=== PATIENT | male | born 1945 | race Caucasian/White ===

== ENCOUNTER 2018-06-01 08:30 | Outpatient (REF) | payer MEDICARE, OTHER, SELFPAY ==
[2018-06-01 13:46] LABS: Anion Gap 10.2 mmol/L (3-11); BUN 18 mg/dL (7-18); CO2 27.8 mmol/L (21.0-32.0); Calcium 8.9 mg/dL (8.5-10.1); Chloride 102 mmol/L (98-107); Glucose 170 mg/dL (70-100); LDL CHOLESTEROL 105 mg/dL (<100); Potassium 4.1 mmol/L (3.5-5.1); Sodium 140 mmol/L (136-145); Vitamin B12 714 pg/mL (193-986)
== END 2018-06-01 08:50 ==
LOC: NCHCN 08:30
PROVIDERS: PCP Family Medicine; Visit Provider Family Medicine
DX: E78.5 Hyperlipidemia, unspecified (principal); E11.9 Type 2 diabetes mellitus without complications; I10 Essential (primary) hypertension; D75.89 Other specified diseases of blood and blood-forming organs
CPT/HCPCS: 80048; 83721; 82607

== ENCOUNTER 2019-06-07 18:39 | Outpatient (REF) | payer MEDICARE, OTHER, SELFPAY ==
[2019-06-07 19:00] LABS: ALT 37 U/L (16-63); AST 20 U/L (15-37); Alkaline Phosphatase 45 U/L (46-116); Anion Gap 9.7 mmol/L (3-11); BUN 17 mg/dL (7-18); Bilirubin, Total 0.7 mg/dL (0.2-1.0); CO2 26.3 mmol/L (21.0-32.0); CREATININE 0.92 mg/dL (0.70-1.30); Calcium 9.1 mg/dL (8.5-10.1); Chloride 105 mmol/L (98-107); Glucose 133 mg/dL (74-106); Potassium 4.2 mmol/L (3.5-5.1); Sodium 141 mmol/L (136-145)
[2019-06-09 14:52] LABS: Hepatitis C Ab w Rflx HCV PCR Negative (Negative)
== END 2019-06-07 18:59 ==
LOC: NCHCN 18:39
PROVIDERS: PCP Family Medicine; Visit Provider Family Medicine
DX: E11.9 Type 2 diabetes mellitus without complications (principal); F10.99 Alcohol use, unspecified with unspecified alcohol-induced disorder; Z68.30 Body mass index [BMI] 30.0-30.9, adult; Z11.59 Encounter for screening for other viral diseases
CPT/HCPCS: 80053; 86803

== ENCOUNTER 2020-07-02 10:18 | Outpatient (REF) | payer MEDICARE, OTHER, SELFPAY ==
[2020-07-02 16:18] LABS: Anion Gap 11.4 mmol/L (3-11); BUN 19 mg/dL (7-18); CO2 25.6 mmol/L (21.0-32.0); CREATININE 0.9 mg/dL (0.70-1.30); Calcium 9.3 mg/dL (8.5-10.1); Chloride 104 mmol/L (98-107); Glucose 128 mg/dL (74-106); Potassium 4.5 mmol/L (3.5-5.1); Sodium 141 mmol/L (136-145)
== END 2020-07-02 10:19 | disposition home or self-care (01) ==
LOC: NCHCN 10:18
PROVIDERS: PCP Family Medicine; Visit Provider Family Medicine
DX: I10 Essential (primary) hypertension (principal)
CPT/HCPCS: 80048

== ENCOUNTER 2020-12-26 08:33 | Observation (INO) | payer MEDICARE, OTHER, SELFPAY ==
[2020-12-26] VITALS (82 sets, daily range): BP systolic 133–169; BP diastolic 48–79; PULSE 61–99; RESP 11–22; TEMP 36.2–37; O2SAT 91–98
--- NOTE | 2020-12-26 08:30 | RT.EKG_ITS ---
APPROVED REPORT Exam: Resting ECG Reason for Exam: dizzy Patient Location: E HR:90 bpm ECG Measurements Heart Rate 90 AXIS IN 152 P 63 QRSd 100 QRS 19 QT 379 T 57 QTc 464 Conclusion Sinus rhythm...normal P axis, V-rate 60- 99 sinus rhythm at 90, normal axis, no WPW, QTC 464, no STEMI, nondiagnostic EKG
[2020-12-26 10:43] LABS: Abs Immature Grans 0.06 10^3/uL (0.0-0.06); Absolute Basophil Count 0.06 10^3/uL (0.0-0.2); Absolute Eosinophil Count 0.01 10^3/uL (0.0-0.7); Absolute Lymphocyte Count 1.57 10^3/uL (1.2-3.4); Absolute Monocyte Count 0.52 10^3/uL (0.1-0.8); Basophils % 0.4; Eosinophils % 0.1; HCT 41.8 % (40.0-50.0); HGB 14.1 g/dL (13.5-17.5); Immature Grans % 0.4; Lactate 2.1 mmol/L (0.6-1.4); Lymphocytes % 11.3; MCH 32.6 pg (27.0-33.0); MCHC 33.7 % (32.0-36.0); MCV 96.5 fL (80-95); MPV 10.4 fL (8.0-11.0); Monocytes % 3.7; Neutrophils % 84.1; Nucleated RBC 0 %; Platelet Count 231 10^3/uL (130-400); RBC 4.33 10^6/uL (4.36-5.78); RDW 12.7 % (11.8-14.1); RDW-SD 46.1 fL; WBC 13.93 10^3/uL (4.4-10.8)
[2020-12-26 10:45] LABS: Absolute Neutrophil Count 11.72 10^3/uL (1.2-6.7)
--- NOTE | 2020-12-26 11:00 | DI.RAD_ITS ---
Exam(s) XR CHEST 2V PA LATERAL EXAM: XR CHEST 2V PA LATERAL CLINICAL HISTORY: lightheadedness. TECHNIQUE: 2D digital imaging was performed. COMPARISON: No exams were available for comparison FINDINGS: Heart size is normal. The mediastinum is not widened. Left lung is clear. There appears to be an element of volume loss in the right lower lobe. No pleur al effusions. No pulmonary edema. No pneumothorax. IMPRESSION: Density in the right lung base is either extension of pericardiac fat pad or significant volume loss in the right lower lobe. Similar findings are not seen in the opposite-left lung. DATA REPOSITORY: RADIATION DOSE DELIVERED:
[2020-12-26] MEDS: Normal Saline 1,000 ML 1000 ML IV ×2 (11:08→14:28)
--- NOTE | 2020-12-26 11:09 | ED.GENADUL_ITS ---
Discharge Plan Disposition Patient Disposition: [facility] INPATIENT Condition: Stable Discharge Details Clinical Impression: Unsteady gait Admit Date/Time: 12/26/20 17:28 Admit Provider: Danish Cade Attending Provider: Danish Cade Primary Care Provider: Christiano Castro ED Provider: Joe Steward Discharge Data Discharge Date/Time-TO BE ENTERED AT DEPARTURE: 12/26/20 18:42 Medical Decision Making <Asha Hatfield MD - Last Filed: 01/02/21 14:13> Terence Jules is a 75-year-old man with a history of hypertension, diabetes, hyperlipidemia presenting to emergency department with generalized weakness, difficulty walking. On exam patient is well and nontoxic-appearing. Benign cardiopulmonary exam. Nonfocal neurologic exam. Patient reporting significant lightheadedness with going from laying down to sitting up, standing neurologic exam deferred. Concern for metabolic/electrolyte derangement, possible acute emergent intracranial process, dehydration, acute coronary syndrome, pulmonary embolism, early sepsis, other. Exam/history at this time is not consistent with CVA, meningitis, subarachnoid hemorrhage, acute aortic pathology. EKG obtained and nondiagnostic. Plan for IV placement, telemetry, IV fluid hydration, CT head, screening labs. Will monitor and reassess. Plan for orthostatic vital signs after 1 L IV fluid. Patient did go to the bathroom, reported feeling shaky during the process, but did not have significant lightheadedness per nursing. Orthostatic vital signs obtained, non-diagnostic. CT head and chest x-ray negative for acute process per radiology. Labs reviewed, WBC 13.93, D-dimer 1287, lactate 2.1, anion gap 16.9, troponin negative. CT chest ordered given elevated D-dimer. CT chest negative for acute process per radiology. On reassessment, patient reports that he feels well while sitting in stretcher, no longer feels lightheaded with sitting, but has continued shakiness when standing. Patient reassessed, when standing patient persistently bears weight on heels, has difficulty maintaining feet flat on the ground, positive Romberg. Patient reports some lightheadedness with standing but does not appear to be presyncopal. Plan for MRI/MRA for rule out central process. Patient and his daughter reports that this significant change from baseline. Given severity of symptoms with standing, Pt unable to walk without feeling that he will fall, plan for admission. Medical Records Medical records reviewed: Yes I reviewed the patient's medical records. Imaging Data Radiologic Study: Attestation: I personally reviewed and interpreted this imaging study as follows: Radiologist's impression: EXAM: XR CHEST 2V PA LATERAL CLINICAL HISTORY: lightheadedness. TECHNIQUE: 2D digital imaging was performed. COMPARISON: No exams were available for comparison FINDINGS: Heart size is normal. The mediastinum is not widened. Left lung is clear. There appears to be an element of volume loss in the right lower lobe. No pleural effusions. No pulmonary edema. No pneumothorax. IMPRESSION: Density in the right lung base is either extension of pericardiac fat pad or significant volume loss in the right lower lobe. Similar findings are not seen in the opposite-left lung. EXAM: CT CHEST PE CTA CLINICAL HISTORY: near syncope, elevated d-dimer. TECHNIQUE: Imaging Protocol: CT angiography of the chest was performed using pulmonary embolus protocol. Multi planar reconstructions were performed. CONTRAST MATERIAL: Intravenous: Omnipaque 350 Contrast volume: 100 cc COMPARISON: No exams were available for comparison FINDINGS: CHEST: PULMONARY ARTERIES: There are no obvious intraluminal filling defects to suggest acute pulmonary emboli. LUNGS: Mild increased markings both lung bases but no prominent infiltrates nor pleural effusions.. No obvious pulmonary infarction. MEDIASTINUM: There is no hilar nor mediastinal adenopathy. Visualized thyroid unremarkable. CARDIAC: Heart size is upper normal. There is no pericardial effusion.Caliber of the thoracic aorta is within normal limits. There is no significant shift of the interventricular septum. PARTIALLY VISUALIZED UPPERMOST ABDOMEN: No adrenal masses. There is a 1.5 cm cyst in the partially visualized right kidney. OSSEOUS: No significant osseous lesions.. IMPRESSION: 1. No evidence of obvious acute pulmonary emboli. No evidence of pulmonary infarction.No pleural effusions. 2. No intrathoracic adenopathy. 3. Heart size normal. Pericardial effusion. (*clarified with radiology Impression is to say NO pericardial effusion, Dragon dictation error) EXAM: CT HEAD WO CLINICAL HISTORY: lightheadedness, memory issues. TECHNIQUE: Imaging Protocol: Axial computed tomography images with coronal and sagittal reformatted images were created and reviewed COMPARISON: CR XR CHEST 2V PA LATERAL from 12/26/2020 FINDINGS: There are no skull fractures. Mucosal thickening in both maxillary sinuses noted, not associated with fluid levels therein. Also some mucosal thickening in the frontal sinuses. There is no evidence of intracranial hemorrhage, mass effect, or shift of midline structures. There are no extra-axial fluid collections. The ventricles are not enlarged or shifted and there is no blood within the ventricular system nor within the basal cisterns. Symmetrical involutional change atrophy noted IMPRESSION: No acute intracranial findings on this noninfused CT scan of the brain. Sinus mucosal disease as described above. No associated fluid levels. No bone dehiscence. Lab Data Lab results reviewed: Yes I reviewed the patient's lab results. Labs: Laboratory Tests Range/Units 12/26/20 12/26/20 12/26/20 10:35 10:35 10:35 WBC (4.4-10.8) 10^3/uL 13.93 H RBC (4.36-5.78) 10^6/uL 4.33 L Hgb (13.5-17.5) g/dL 14.1 Hct (40.0-50.0) % 41.8 MCV (80-95) fL 96.5 H MCH (27.0-33.0) pg 32.6 MCHC (32.0-36.0) % 33.7 RDW (11.8-14.1) % 12.7 Plt Count (130-400) 10^3/uL 231 MPV (8.0-11.0) fL 10.4 Immature Gran % 0.4 Neutrophils % 84.1 Lymphocytes % 11.3 Monocytes % 3.7 Eosinophils % 0.1 Basophils % 0.4 Nucleated RBC % % 0 Absolute Neutrophils (1.2-6.7) 10^3/uL 11.72 H Absolute Lymphocytes (1.2-3.4) 10^3/uL 1.57 Absolute Monocytes (0.1-0.8) 10^3/uL 0.52 Absolute Eosinophils (0.0-0.7) 10^3/uL 0.01 Absolute Basophils (0.0-0.2) 10^3/uL 0.06 D-Dimer (<500) ng/mlFEU VBG Lactate (0.6-1.4) mmol/L Sodium Cancelled 142 Potassium Cancelled 4.5 Chloride Cancelled 102 Carbon Dioxide Cancelled 23.1 Anion Gap Cancelled 16.9 H BUN Cancelled 20 H Creatinine Cancelled 1.3 Estimated GFR/1.73 m2 Cancelled 53.82 Glucose Cancelled 111 H Calcium Cancelled 9.3 Magnesium (1.8-2.4) mg/dL 2.1 Total Bilirubin Cancelled 0.7 AST Cancelled 30 ALT Cancelled 32 Alkaline Phosphatase Cancelled 68 Troponin I (<0.06) ng/mL < 0.05 Total Protein Cancelled 7.9 Albumin Cancelled 4.4 TSH (0.36-3.74) uIU/mL 0.74 Urine Color (Yellow) Urine Clarity (Clear) Urine pH (5-8) Ur Specific [place] (1.005-1.025) Urine Protein (Negative) mg/dL Urine Ketones (Negative) mg/dL Urine Blood (Negative) Urine Nitrite (Negative) Urine Bilirubin (Negative) Urine Urobilinogen (Up TO 0.2) EU/dL Ur Leukocyte Esterase (Negative) Urine RBC (0-2) HPF Urine WBC (0-5) HPF Ur Epithelial Cells (Negative) HPF Urine Crystals (Negative) HPF Urine Bacteria (Negative) HPF Urine Casts (Negative) LPF Urine Mucus (Negative) Ur Culture Indicated? Urine Glucose (Negative) mg/dL COVID-19 Source Range/Units 12/26/20 12/26/20 12/26/20 10:35 10:55 11:05 WBC (4.4-10.8) 10^3/uL RBC (4.36-5.78) 10^6/uL Hgb (13.5-17.5) g/dL Hct (40.0-50.0) % MCV (80-95) fL MCH (27.0-33.0) pg MCHC (32.0-36.0) % RDW (11.8-14.1) % Plt Count (130-400) 10^3/uL MPV (8.0-11.0) fL Immature Gran % Neutrophils % Lymphocytes % Monocytes % Eosinophils % Basophils % Nucleated RBC % % Absolute Neutrophils (1.2-6.7) 10^3/uL Absolute Lymphocytes (1.2-3.4) 10^3/uL Absolute Monocytes (0.1-0.8) 10^3/uL Absolute Eosinophils (0.0-0.7) 10^3/uL Absolute Basophils (0.0-0.2) 10^3/uL D-Dimer (<500) ng/mlFEU 1287 H VBG Lactate (0.6-1.4) mmol/L 2.1 H Sodium Potassium Chloride Carbon Dioxide Anion Gap BUN Creatinine Estimated GFR/1.73 m2 Glucose Calcium Magnesium (1.8-2.4) mg/dL Total Bilirubin AST ALT Alkaline Phosphatase Troponin I (<0.06) ng/mL Total Protein Albumin TSH (0.36-3.74) uIU/mL Urine Color (Yellow) Yellow Urine Clarity (Clear) Clear Urine pH (5-8) 5.5 Ur Specific [place] (1.005-1.025) >= 1.030 H Urine Protein (Negative) mg/dL Negative Urine Ketones (Negative) mg/dL 80 H Urine Blood (Negative) Trace-lysed H Urine Nitrite (Negative) Negative Urine Bilirubin (Negative) Negative Urine Urobilinogen (Up TO 0.2) EU/dL 0.2 Ur Leukocyte Esterase (Negative) Negative Urine RBC (0-2) HPF 0-2 Urine WBC (0-5) HPF 0-2 Ur Epithelial Cells (Negative) HPF Rare Urine Crystals (Negative) HPF Negative Urine Bacteria (Negative) HPF Few Urine Casts (Negative) LPF Comment Urine Mucus (Negative) Moderate Ur Culture Indicated? No Urine Glucose (Negative) mg/dL Negative COVID-19 Source Range/Units 12/26/20 11:12 WBC (4.4-10.8) 10^3/uL RBC (4.36-5.78) 10^6/uL Hgb (13.5-17.5) g/dL Hct (40.0-50.0) % MCV (80-95) fL MCH (27.0-33.0) pg MCHC (32.0-36.0) % RDW (11.8-14.1) % Plt Count (130-400) 10^3/uL MPV (8.0-11.0) fL Immature Gran % Neutrophils % Lymphocytes % Monocytes % Eosinophils % Basophils % Nucleated RBC % % Absolute Neutrophils (1.2-6.7) 10^3/uL Absolute Lymphocytes (1.2-3.4) 10^3/uL Absolute Monocytes (0.1-0.8) 10^3/uL Absolute Eosinophils (0.0-0.7) 10^3/uL Absolute Basophils (0.0-0.2) 10^3/uL D-Dimer (<500) ng/mlFEU VBG Lactate (0.6-1.4) mmol/L Sodium Potassium Chloride Carbon Dioxide Anion Gap BUN Creatinine Estimated GFR/1.73 m2 Glucose Calcium Magnesium (1.8-2.4) mg/dL Total Bilirubin AST ALT Alkaline Phosphatase Troponin I (<0.06) ng/mL Total Protein Albumin TSH (0.36-3.74) uIU/mL Urine Color (Yellow) Urine Clarity (Clear) Urine pH (5-8) Ur Specific [place] (1.005-1.025) Urine Protein (Negative) mg/dL Urine Ketones (Negative) mg/dL Urine Blood (Negative) Urine Nitrite (Negative) Urine Bilirubin (Negative) Urine Urobilinogen (Up TO 0.2) EU/dL Ur Leukocyte Esterase (Negative) Urine RBC (0-2) HPF Urine WBC (0-5) HPF Ur Epithelial Cells (Negative) HPF Urine Crystals (Negative) HPF Urine Bacteria (Negative) HPF Urine Casts (Negative) LPF Urine Mucus (Negative) Ur Culture Indicated? Urine Glucose (Negative) mg/dL COVID-19 Source Nasal/Nares ECG Data Attestation: I personally reviewed and interpreted this ECG (s) as follows: Interpretation: EKG shows sinus rhythm at 90, normal axis, no WPW, QTC 464, no STEMI, nondiagnostic EKG <Joe Steward MD - Last Filed: 12/26/20 17:31> mri/mra unremarkable for acute findings and remains stable, spoke withDr. Cade who accepts for admission HPI <Asha Hatfield MD - Last Filed: 01/02/21 14:13> General Date/Time Provider Initiated Documentation: 12/26/20 09:14 . Limitations to Documentation: no limitations . Information obtained by: patient, family, RN notes reviewed and old records reviewed . HPI Narrative: Terence Jules is a 75-year-old man with history of hyperlipidemia, hypertension, [id number] diabetes presenting to emergency department with lightheadedness. Patient reports that he woke up this morning, got out of bed, and walk to the bathroom. Patient reports that on the way to the bathroom he felt shaky, both of his legs felt weak, and he felt as if he might faint. Patient was able to go to the bathroom where he urinated, and then went back to his bed and lie down. Patient reports that his symptoms improved significantly upon lying down. Patient reports that he lie down for a while, and then got out of bed to have breakfast, and upon standing again felt quite lightheaded. He was able to walk to a chair in his living room. Patient called his daughter at approximately 7 AM and let her know of his symptoms. Patient's daughter accompanies the patient, and reports that patient feeling unwell or calling her because he feels unwell is very atypical for him. Patient and his daughter report that over the past few months, and particularly in the past month or so, they have noticed that he has had difficulty with word finding and memory, and patient's daughter reports that last week he did not remember a member of their extended family in conversation. Patient reports that he has not been evaluated for this in the past. Patient's left for [place] approximately 3 weeks ago, and is due to return next week. Patient since then what he has been eating has changed, and is eating may have decreased somewhat. He denies any alcohol use, any nicotine or tobacco use. He denies any pain, shortness of breath, cough (contrary to triage note), vomiting, diarrhea, constipation, localized weakness. Patient reports that at no point this morning if you faint, and he did not fall. He denies any vertigo or spinning sensation since onset of symptoms. Related Data Home Medications Medication Instructions Recorded Confirmed blood sugar diagnostic [OneTouch #90 strip 06/25/12 11/17/16 Ultra Test] lancets [FunifiTouch Delica Lancets] #100 ea 06/25/12 11/17/16 multivitamin 1 tab PO DAILY 06/25/12 12/26/20 naproxen sodium 1 tab PO DAILY 12/19/13 12/26/20 amlodipine [Norvasc] 1 tab PO QAM #90 tab 06/19/14 12/26/20 atorvastatin [Lipitor] 1 tab PO QAM #90 tab-cap 06/19/14 12/26/20 losartan [Cozaar] 1 tab PO QAM #90 tab 06/19/14 12/26/20 metformin 500 mg PO BID #90 tab-cap 06/19/14 12/26/20 metoprolol succinate [Toprol XL] 1 tab PO HS #90 tab-cap 06/19/14 12/26/20 Allergies Allergy/AdvReac Type Severity Reaction Status Date / Time No Known Allergies Allergy Unverified 12/26/20 09:13 General Stated Complaint: Dizzy/Sync CHESTER: 3 Review of Systems <Asha Hatfield MD - Last Filed: 01/02/21 14:13> Narrative: Constitutional: denies fevers, reports generalized weakness Eyes: denies eye pain ENT: denies ear pain, dental pain, sore throat Cardiovascular: denies chest pain, edema, reports lightheadedness Respiratory: denies SOB, cough GI: denies abdominal pain, vomiting, diarrhea : denies flank pain MSK: denies back pain, neck pain, arthralgias, myalgias Skin: denies rash Neuro: denies headaches, numbness, focal weakness, reports shakiness in legs and arms PFSH <Asha Hatfield MD - Last Filed: 01/02/21 14:13> Active Problem List Atherosclerotic cerebrovascular disease (Acute) Lightheadedness (Acute) Unsteady gait (Acute) Surgical History Colonoscopy - IV Sedation (06/09/16) Colonoscopy - MAC 10/23 hernia repair right herniorrhaphy x2 Family History Mother Essential hypertension Heart disease Stroke Father Diabetes Personal history of malignant neoplasm PROSTATE Heart disease Hyperlipidemia Stroke Sister No problems noted. Grandmother Essential hypertension Heart disease Grandfather Personal history of malignant neoplasm Grandfather Personal history of malignant neoplasm PROSTATE/SKIN Grandmother Stroke Social History Smoking/Tobacco Use Status: Former Tobacco Use Smoking risk assessment performed?: Yes Alcohol Intake: current Alcohol Intake frequency: a few times a month Drug use: Never Do you feel safe at home: Yes Do you feel safe in your relationship?: Yes Exam <Asha Hatfield MD - Last Filed: 01/02/21 14:13> Narrative Exam Narrative: constitutional: well and [id number], pleasant, conversing normally HENT: head atraumatic/normocephalic/normal inspection, mucous membranes moist Eyes: conjunctiva normal, sclera normal, pupils 3mm b/l ERRLA, EOMI without nystagmus Neck: no stridor, normal ROM, trachea midline, 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 ient, nontender, no overlying skin changes Chest: normal inspection Resp: normal work of breathing, LCTAB Cardio: normal rate, normal rhythm, no murmur appreciated GI: abdomen soft, non-tender, non-distended Back: normal inspection, no rash Skin: warm, dry, normal color, no rash Neuro: alert and oriented x3, not altered, cranial nerves II through XII intact, motor 5 out of 5 throughout, normal tone Ext: no edema, no posterior calf tenderness to palpation Psych: normal mood, normal affect, normal behavior Course <Asha Hatfield MD - Last Filed: 01/02/21 14:13> Vital Signs Vital signs: Vital Signs Pulse Oximetry 98 12/26/20 08:44 Temperature 36.2 C L 12/26/20 09:04 Temperature Source Skin 12/26/20 09:04 Pulse 90 12/26/20 09:31 Pulse 89 12/26/20 09:40 Respiratory Rate 22 12/26/20 09:40 Respiratory Effort 12/26/20 09:11 Respiratory Depth Normal 12/26/20 09:08 Respiratory Pattern Normal 12/26/20 09:08 Blood Pressure 141/54 H 12/26/20 09:31 Blood Pressure Mean 75 12/26/20 09:31 Pulse Oximetry 91 L 12/26/20 09:40 Oxygen Delivery Method Room Air 12/26/20 09:11 Oxygen Flow Rate 0 12/26/20 09:11 Pain Level 10 12/26/20 09:11 Comment uses salon pas patch 12/26/20 09:04 Lab/Test Results Lab/Test Results: Laboratory Tests Range/Units 12/26/20 12/26/20 12/26/20 10:35 10:35 10:35 WBC (4.4-10.8) 10^3/uL 13.93 H RBC (4.36-5.78) 10^6/uL 4.33 L Hgb (13.5-17.5) g/dL 14.1 Hct (40.0-50.0) % 41.8 MCV (80-95) fL 96.5 H MCH (27.0-33.0) pg 32.6 MCHC (32.0-36.0) % 33.7 RDW (11.8-14.1) % 12.7 Plt Count (130-400) 10^3/uL 231 MPV (8.0-11.0) fL 10.4 Immature Gran % 0.4 Neutrophils % 84.1 Lymphocytes % 11.3 Monocytes % 3.7 Eosinophils % 0.1 Basophils % 0.4 Nucleated RBC % % 0 Absolute Neutrophils (1.2-6.7) 10^3/uL 11.72 H Absolute Lymphocytes (1.2-3.4) 10^3/uL 1.57 Absolute Monocytes (0.1-0.8) 10^3/uL 0.52 Absolute Eosinophils (0.0-0.7) 10^3/uL 0.01 Absolute Basophils (0.0-0.2) 10^3/uL 0.06 VBG Lactate (0.6-1.4) mmol/L 2.1 H Sodium Cancelled Potassium Cancelled Chloride Cancelled Carbon Dioxide Cancelled Anion Gap Cancelled BUN Cancelled Creatinine Cancelled Estimated GFR/1.73 m2 Cancelled Glucose Cancelled Calcium Cancelled Total Bilirubin Cancelled AST Cancelled ALT Cancelled Alkaline Phosphatase Cancelled Total Protein Cancelled Albumin Cancelled Sign Out <Asha Hatfield MD - Last Filed: 01/02/21 14:13> Sign Out Data: Sign Out Comment: Patient signed out to Dr. Steward at time of shift change with admission pending for unsteady gait, leukocytosis, lactic acidosis. Last updated by Asha Hatfield MD at 12/26/20 17:04 PAWSS <Asha Hatfield MD - Last Filed: 01/02/21 14:13> Have you Been Recently Intoxicated or Drunk Within the Last 30 days?: No Have you Ever Experienced Previous Episodes of Alcohol Withdrawal?: No Have you ever Experienced Withdrawal Seizures?: No Have you ever Experienced Delirium Tremens(DT)s?: No Have you ever undergone Alcohol Rehabilitation Treatment (i.e, inpt ot outpatient treatment programs)?: No Have you ever Experienced Blackouts?: No Have you ever Combined Alcohol with other Downers within the last 90 days?: No Have you ever Combined Alcohol with any other Substance of Abuse during the last 90 days?: No Positive Blood Alcohol level on Presentation? [PCS.BAL]: No Evidence of Increased Autonomic Activity (i.e. HR>120, tremor, sweating, agitation, nausea)?: No Result: 0
[2020-12-26 11:13] LABS: ALT 32 U/L (16-63); AST 30 U/L (15-37); Albumin 4.4 g/dL (3.4-5.0); Alkaline Phosphatase 68 U/L (46-116); Anion Gap 16.9 mmol/L (3-11); BUN 20 mg/dL (7-18); Bilirubin, Total 0.7 mg/dL (0.2-1.0); CO2 23.1 mmol/L (21.0-32.0); CREATININE 1.3 mg/dL (0.70-1.30); Calcium 9.3 mg/dL (8.5-10.1); Chloride 102 mmol/L (98-107); Estimated GFR 53.82 (mL/min/1.73m2); Glucose 111 mg/dL (74-106); Potassium 4.5 mmol/L (3.5-5.1); Sodium 142 mmol/L (136-145); Total Protein 7.9 g/dL (6.4-8.2)
[2020-12-26 11:14] LABS: Magnesium 2.1 mg/dL (1.8-2.4); TSH (W/Ref FT4) 0.74 uIU/mL (0.36-3.74); Troponin I < 0.05 ng/mL (<0.06)
[2020-12-26 11:15] LABS: Source Nasal/Nares
[2020-12-26 11:22] LABS: Clarity Clear (Clear)
[2020-12-26 11:23] LABS: Bilirubin Negative (Negative); Blood Trace-lysed (Negative); Epithelial Cells Rare HPF (Negative); Glucose Negative (Negative); Ketones 80 mg/dL (Negative); Leukocyte Esterase Negative (Negative); Nitrite Negative (Negative); RBC 0-2 HPF (0-2); Specific Gravity >= 1.030 (1.005-1.025); Urobilinogen 0.2 EU/dL (Up TO 0.2); WBC 0-2 HPF (0-5); pH 5.5 (5-8)
[2020-12-26 11:24] LABS: Bacteria Few HPF (Negative); C & S Indicated? No; Crystals Negative HPF (Negative); Mucus Moderate (Negative)
--- NOTE | 2020-12-26 11:45 | DI.CT_ITS ---
Exam(s) CT CHEST PE CTA EXAM: CT CHEST PE CTA CLINICAL HISTORY: near syncope, elevated d-dimer. TECHNIQUE: Imaging Protocol: CT angiography of the chest was performed using pulmonary embolus carmen col. Multi planar reconstructions were performed. CONTRAST MATERIAL: Intravenous: Omnipaque 350 Contrast volume: 100 cc COMPARISON: No exams were available for comparison FINDINGS: CHEST: PULMONARY ARTERIES: There are no obvious intraluminal filling defects to suggest acute pulmonary embo li. LUNGS: Mild increased markings both lung bases but no prominent infiltrates nor pleural effusions.. No obvious pulmonary infarction. MEDIASTINUM: There is no hilar nor mediastinal adenopathy. Visualized thyroid unremarkable. CARDIAC: Heart size is upper normal. There is no pericardial effusion.Caliber of the thoracic aorta is within normal limits. There is no significant shift of the interventricular septum. PARTIALLY VISUALIZED UPPERMOST ABDOMEN: No adrenal masses. There is a 1.5 cm cyst in the partially v isualized right kidney. OSSEOUS: No significant osseous lesions.. IMPRESSION: 1. No evidence of obvious acute pulmonary emboli. No evidence of pulmonary infarction.No pleural eff usions. 2. No intrathoracic adenopathy. 3. Heart size normal. Pericardial effusion. RADIATION DOSE DELIVERED: 463.18mGy.cm Total DLP DATA REPOSITORY: All CT scans at this facility are submitted to the National Radiology Data Registry (NRDR) Dose Index Registry (DIR) with the [employer] ([employer]). RADIATION OPTIMIZATION: All CT scans at this facility use at least one of these dose optimization te chniques: automated exposure control; mA and/or kV adjustment per patient size (includes targeted exa ms where dose is matched to clinical indication); or iterative reconstruction.
[2020-12-26 11:46] LABS: D-Dimer 1287 ng/mlFEU (<500)
--- NOTE | 2020-12-26 12:00 | DI.CT_ITS ---
Exam(s) CT HEAD WO EXAM: CT HEAD WO CLINICAL HISTORY: lightheadedness, memory issues. TECHNIQUE: Imaging Protocol: Axial computed tomography images with coronal and sagittal reformatted images were created and reviewed COMPARISON: CR XR CHEST 2V PA LATERAL from 12/26/2020 FINDINGS: There are no skull fractures. Mucosal thickening in both maxillary sinuses noted, not associated wi th fluid levels therein. Also some mucosal thickening in the frontal sinuses. There is no evidence of intracranial hemorrhage, mass effect, or shift of midline structures. There are no extra-axial fluid collections. The ventricles are not enlarged or shifted and there is no blo od within the ventricular system nor within the basal cisterns. Symmetrical involutional change atrophy noted IMPRESSION: No acute intracranial findings on this noninfused CT scan of the brain. Sinus mucosal disease as described above. No associated fluid levels. No bone dehiscence. RADIATION DOSE DELIVERED: 818.98mGy.cm Total DLP DATA REPOSITORY: All CT scans at this facility are submitted to the National Radiology Data Registry (NRDR) Dose Index Registry (DIR) with the [employer] ([employer]). RADIATION OPTIMIZATION: All CT scans at this facility use at least one of these dose optimization te chniques: automated exposure control; mA and/or kV adjustment per patient size (includes targeted exa ms where dose is matched to clinical indication); or iterative reconstruction.
[2020-12-26] MEDS: Omnipaque 350 MG/ML 100 ML BTL IJ (13:17)
[2020-12-26] MEDS: Normal Saline - Diluent 50 ML VIAL IV (13:18)
[2020-12-26] MEDS: Normal Saline Flush 10 ML SYR IVP (13:19)
--- NOTE | 2020-12-26 16:00 | DI.MRI_ITS ---
Exam(s) MR ANGIO BRAIN WO CLINICAL HISTORY: loss of balance. TECHNIQUE: Multiplanar multisequence MRA of the brain was performed. COMPARISON: None. FINDINGS: Carotid Arteries: Petrous: Normal. Cavernous: Normal. Cerebral: Normal. Middle Cerebral Arteries: Right: No aneurysm or significant stenosis. Left: No aneurysm or significant stenosis. Anterior Cerebral Arteries: Right: No aneurysm or significant stenosis. Left: No aneurysm or significant stenosis. Vertebral Arteries: Right: No aneurysm or significant stenosis. Left: No aneurysm or significant stenosis. . Basilar Artery: No aneurysm or significant stenosis. IMPRESSION: No evidence of significant stenosis, occlusion or dissection. No aneurysm. DATA REPOSITORY:
--- NOTE | 2020-12-26 16:10 | DI.MRI_ITS ---
Exam(s) MR ANGIO NECK WO EXAM: MR ANGIO NECK WO CLINICAL HISTORY: loss of balance. TECHNIQUE: Multiplanar multisequence MRA of the Neck was performed. COMPARISON: No exams were available for comparison FINDINGS: Common Carotid: Right: No dissection, occlusion or significant stenosis. Left: No dissection, occlusion or significant stenosis. Internal Carotid: Right: Tortuosity proximally. Segment of apparent narrowing proximally versus in plain artifact. No dissection, . Left: No dissection, mild proximal narrowing.. Vertebral Artery: Right: No dissection, occlusion or significant stenosis. Left: No dissection, occlusion or significant stenosis. IMPRESSION: Right: Tortuous proximal right internal carotid artery. Apparent approximate 60 percent narrowing pr oximally versus artifact. Left: Mild stenosis proximal left internal carotid artery. Less than 50 percent stenosis. DATA REPOSITORY:
--- NOTE | 2020-12-26 16:45 | DI.VRAD_ITS ---
PROCEDURE INFORMATION: Exam: MRA Neck Without Contrast Exam date and time: 12/26/2020 4:08 PM Age: 75 years old Clinical indication: Other: Balance issues TECHNIQUE: Imaging protocol: Magnetic resonance angiography of the neck without contrast. COMPARISON: No relevant prior studies available. FINDINGS: Right common carotid artery: No stenosis. No dissection or occlusion. Right internal carotid artery: Irregular long segment narrowing of the right internal carotid artery from the origin through the mid cervical vessel is estimated at 60% by NASCET criteria. Right external carotid artery: No stenosis. No dissection or occlusion of the origin. Right vertebral artery: Irregular moderate narrowing of the right vertebral V3 segment. Left common carotid artery: No stenosis. No dissection or occlusion. Left internal carotid artery: Irregular narrowing at the left internal carotid artery origin is estimated at less than 50% by NASCET criteria. Left external carotid artery: No stenosis. No dissection or occlusion of the origin. Left vertebral artery: Somewhat hypoplastic left vertebral artery, with mild irregular distal vessel narrowing. IMPRESSION: 1. Moderate stenosis at the proximal right internal carotid artery is estimated at 60% by NASCET criteria. 2. Mild stenosis at the left internal carotid artery origin is estimated at less than 50% by NASCET criteria. 3. Irregular narrowing of the distal right greater than left vertebral arteries likely secondary to atherosclerosis. REFERENCES: NASCET CRITERIA. The degree of internal carotid artery stenosis is based on NASCET criteria. Normal is no stenosis. Mild is less than 50% stenosis. Moderate is 50-69% stenosis. Severe is 70% to 99% stenosis. Total occlusion is no detectable patent lumen. Dictated and Authenticated by: Guilherme Burgos MD. Ordering:FRANCISCO Barry MD
--- NOTE | 2020-12-26 16:45 | DI.MRI_ITS ---
Exam(s) MR BRAIN WO EXAM: MR BRAIN WO CLINICAL HISTORY: acute loss of balance. TECHNIQUE: Multiplanar multisequence MRI of the brain was performed. CONTRAST MATERIAL: Noncontrast COMPARISON: MR MR ANGIO BRAIN WO from 12/26/2020 FINDINGS: VENTRICLES AND EXTRA AXIAL SPACES: Nmvw-yu-noomithr atrophy. Ventricles not dilated. HEMORRHAGE: None. CEREBRAL PARENCHYMA: No focus of restricted diffusion to suggest acute infarct. No space-occupying le rosanna identified. Mild small-vessel white matter changes. MIDLINE SHIFT: None. BRAINSTEM/CEREBELLUM: Normal. VISUALIZED PARANASAL SINUSES/MASTOIDS: Mild maxillary sinus mucosal thickening. OTHER FINDINGS: Roughly 2.5 centimeter fatty asymmetry in the left posterior neck seen on the sagitta l T2 sequence, consistent with a lipoma. IMPRESSION: Atrophy and white matter changes of small vessel disease. No evidence of an acute infarct. DATA REPOSITORY:
--- NOTE | 2020-12-26 16:49 | DI.VRAD_ITS ---
PROCEDURE INFORMATION: Exam: MRA Head Without Contrast; Arteriography Exam date and time: 12/26/2020 4:27 PM Age: 75 years old Clinical indication: Other: Balance issues TECHNIQUE: Imaging protocol: Magnetic resonance angiography head without contrast. Exam focused on the arteries. COMPARISON: CT HEAD WO 12/26/2020 11:49 AM FINDINGS: ANTERIOR CIRCULATION: Right internal carotid artery: Intracranial segment is patent with no significant stenosis. No aneurysm. Right middle cerebral artery: No occlusion or significant stenosis. No aneurysm. Right anterior cerebral artery: No occlusion or significant stenosis. No aneurysm. Left internal carotid artery: Intracranial segment is patent with no significant stenosis. No aneurysm. Left middle cerebral artery: No occlusion or significant stenosis. No aneurysm. Left anterior cerebral artery: Mild irregular narrowing of the distal left V4 segment. No evidence of aneurysm formation. POSTERIOR CIRCULATION: Right vertebral artery: No occlusion or significant stenosis. No aneurysm. Left vertebral artery: No occlusion or significant stenosis. No aneurysm. Basilar artery: Mild irregular narrowing of the basilar artery. No evidence of aneurysm formation. Right posterior cerebral artery: No occlusion or significant stenosis. No aneurysm. Left posterior cerebral artery: Persistent origin of the left posterior cerebral artery, with diminutive left P1 segment. No evidence of significant stenosis or aneurysm formation. IMPRESSION: Mild intracranial arteriosclerosis, without high-grade stenosis or evidence of anterior large vessel occlusion. Dictated and Authenticated by: Guilherme Burgos MD. Ordering:FRANCISCO Barry MD
--- NOTE | 2020-12-26 16:58 | DI.VRAD_ITS ---
PROCEDURE INFORMATION: Exam: MR Head Without Contrast Exam date and time: 12/26/2020 4:25 PM Age: 75 years old Clinical indication: Other: Confusion, balance issues. TECHNIQUE: Imaging protocol: MR of the head without contrast. COMPARISON: CT HEAD WO 12/26/2020 11:49 AM FINDINGS: Brain: Cerebral and cerebellar volume is within normal limits for the patient's age. Mild chronic small vessel ischemic changes. No evidence of acute infarction. No acute intracranial hemorrhage, midline shift, or mass effect. Cerebral ventricles: Normal. No ventriculomegaly. Pituitary gland and sella: No gross mass. Bones/joints: Degenerative changes of the cervical spine with likely significant spinal canal stenosis, incompletely evaluated. Paranasal sinuses: Normal as visualized. No acute sinusitis. Mastoid air cells: Normal as visualized. No mastoid effusion. Orbital cavity: Status post bilateral lens replacement surgery. 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 No evidence of acute infarction. 2. Mild chronic small vessel ischemic changes. Dictated and Authenticated by: Guilherme Burgos MD. Ordering:FRANCISCO Barry MD
[2020-12-26 18:03] LABS: Lactate 1.1 mmol/L (0.6-1.4)
[2020-12-26] MEDS: Aspirin 81 MG CHEW 324 MG CH (18:17)
[2020-12-26 18:21] LABS: Anion Gap 12.4 mmol/L (3-11); BUN 15 mg/dL (7-18); CO2 23.6 mmol/L (21.0-32.0); Calcium 8.3 mg/dL (8.5-10.1); Chloride 105 mmol/L (98-107); Glucose 79 mg/dL (74-106); Sodium 141 mmol/L (136-145)
[2020-12-26 18:40] LABS: Troponin I < 0.05 ng/mL (<0.06)
[2020-12-26 19:28] LABS: COVID-19 PCR Negative (Negative)
[2020-12-26] MEDS: Enoxaparin 40 MG/0.4 ML SYR SC (20:31)
--- NOTE | 2020-12-26 20:34 | W.PM.HP.N ---
Date of service: 12/26/20 Time of Service: 20:34 Assessment and Plan Assessment and plan (1) Unsteady gait: Status: Acute Assessment and plan: Unclear etiology. Reportedly had a positive Romberg sign in the emergency department. I did not ambulate the patient in his room but he seemed to have normal strength and range of motion of both upper and lower extremities with no visible tremors. I will ask physical therapy to evaluate his gait and strength in the morning. We will ask neurology to consult on his cerebrovascular disease and is documented in his MRI and MRA of the brain and MRA of his cervical vessels. Patient will be start on aspirin daily. I have put parameters on which to hold his antihypertensive medications if his systolic blood pressures below 130. He describes a shakiness in his arms and legs when the try getting out of bed this morning and it may be that he has had some poor oral intake and may have been mildly dehydrated and may have been orthostatic. There is also been some concern raised by family that he has had some mild cognitive impairment with some recent memory loss. (2) Lightheadedness: Status: Acute Assessment and plan: As above (3) HTN (hypertension): Status: None Assessment and plan: Continue home medications with parameters to hold his blood pressure for low blood pressure readings. Will monitor orthostatic vitals. Qualifiers: Hypertension type: primary hypertension Qualified Code(s): I10 - Essential (primary) hypertension (4) DM (diabetes mellitus): Status: None Assessment and plan: We will hold his Metformin for now in light of his recent CT and MRI exam. Continue to monitor blood sugars before meals and at bedtime and cover with low-dose sliding scale NovoLog. Check glycohemoglobin A1c in the morning. Qualifiers: Diabetes mellitus type: type 2 Diabetes mellitus shelter insulin use: without shelter use Diabetes mellitus complication status: without complication Qualified Code(s): E11.9 - Type 2 diabetes mellitus without complications (5) Atherosclerotic cerebrovascular disease: Status: Acute Assessment and plan: CT of the head without contrast reportedly showed no acute findings and his MRI of the brain showed mild chronic small vessel changes with no acute infarction. However MRI of the brain showed some mild intracranial arterial sclerosis with mild irregular narrowing of his basilar artery is MRA of the cervical vessels showed moderate stenosis of his proximal right internal carotid artery with 60% narrowing and mild stenosis of his left internal carotid artery along with some irregular narrowing of the distal right and left vertebral arteries. Patient will be started on aspirin 81 mg daily. He was front loaded with aspirin 324 mg orally in the emergency department. I will check his glycohemoglobin A1c and lipid profile in the morning. Otherwise continue his current dose of atorvastatin. Continue current blood pressure medications with close monitoring and orthostatic vitals. History of Present Illness History of Present Illness Chief Complaint: Shakiness, lightheadedness, weakness Narrative: 75-year-old male non-smoker with history of type 2 diabetes mellitus on Metformin, essential hypertension (on Norvasc, losartan, Toprol-XL), hyperlipidemia treated with atorvastatin, who usually lives with his but his has been out of town in [place] for the last 3 weeks. Patient had awoken this morning around 5:55 AM and got up to the bathroom felt very weak shaky felt like he was going to pass out but did not lose consciousness and did not fall. He voided and walked back to the bedroom to lie down. After laying down he felt better. He had no vertigo symptoms although he did have some nausea but no vomiting. He denied a headache or blurred vision or vision loss and denied any focal paresthesias or paraparesis. He tried to get out of bed to get some breakfast around 630 or 7 AM and again felt very lightheaded but was able to walk to the chair in the living room and sat down and called his daughter. This is around 7 AM. He was brought to the emergency department at 8:45 AM accompanied by his daughter. His daughter gave additional information to the ER personnel that the patient's been having difficulty with his memory with frequent word finding difficulty and difficulty recalling names of extended family members. She also noted these not been eating right since her mother went to [place]. In the emergency department the patient underwent diagnostic work-up including routine labs EKG noncontrast CT scan of the head and subsequently underwent MRI of the brain as well as MRA of the brain and MRA of the cervical vessels. CBC demonstrated a white count of 13,900 with no anemia hemoglobin 14.1 g normal platelet count 2 31,000. CMP demonstrated an increased anion gap of 16.9 and a BUN of 20 creatinine 1.3 glucose 111. Transaminases and the rest of his electrolytes were normal. Troponin I level was less than 0.05. TSH was normal 0.74. Repeat troponin was ordered to be done around 130 this afternoon but did not get completed till 1800 tonight fortunately this was also normal at less than 0.05. His D-dimer is elevated at 1287 prompting a work-up with a CTA of his chest. Urinalysis shows specific gravity greater than 1.030 with 80 mg/dL ketones but negative for glucose. Nitrites and urine protein and leukocyte esterase were all negative. He had only 0-2 red cells and 0-2 white cells per high-powered field but had moderate mucus as well as 0-2 granular casts and 5-[address] scan of his head showed no acute intracranial findings but suggested some sinus mucosal thickening without any fluid collections. MRI of the brain showed no evidence of acute infarction but showed mild chronic small vessel ischemic changes. MRA of the brain showed mild intracranial arterial sclerosis without high-grade stenosis or evidence of anterior large vessel occlusion. Patient did have mild irregular narrowing of the distal left V4 segment of the left anterior cerebral artery. Patient also had persistent origin of the left posterior cerebral artery with a diminutive left P1 segment. The basilar artery had mild irregular narrowing. MRA of the cervical vessels showed moderate stenosis of the proximal right internal carotid artery at 60% and mild stenosis of the left internal carotid artery origin at less than 50% along with irregular narrowing of the distal right and left vertebral arteries. EKG demonstrated normal sinus rhythm at rate and [address] or T wave changes. Treatment included IV fluid hydration. Patient was given 2 L of normal saline while in the emergency department. Patient is now admitted to the hospital on observation status to evaluate for arrhythmias versus TIAs versus generalized deconditioning versus dehydration as a cause for his gait instability and complaints of lightheadedness and shakiness. His laboratory studies certainly suggest some dehydration and poor oral intake as demonstrated by the ketosis on his urinalysis and his elevated specific gravity and elevated BUN to creatinine ratio. His elevated white count is of some concern for potential infection although the patient is afebrile and denies any dysuria or fever or chills or dyspnea or cough. Patient will be monitored overnight for any fevers and repeat CBC will be ordered in the morning. Repeat urinalysis has been ordered. Because the blood lactate was not repeated after he was hydrated I did get another lactate level and another BMP this evening. His BUN is now down to 15 his creatinine is 1.0 and his anion gap is decreased to 12.4. His repeat lactate is now normal at 1.1. Review of Systems All systems reviewed & are unremarkable except as noted in HPI and below PFSH Medical History (Updated 12/26/20 @ 23:34 by Danish Bragg) DM (diabetes mellitus) HTN (hypertension) Surgical History Colonoscopy - IV Sedation (06/09/16) Colonoscopy - MAC 10/23 hernia repair right herniorrhaphy x2 Family History Mother Essential hypertension Heart disease Stroke Father Diabetes Personal history of malignant neoplasm PROSTATE Heart disease Hyperlipidemia Stroke Sister No problems noted. Grandmother Essential hypertension Heart disease Grandfather Personal history of malignant neoplasm Grandfather Personal history of malignant neoplasm PROSTATE/SKIN Grandmother Stroke Social History Smoking/Tobacco Use Status: Former Tobacco Use Smoking risk assessment performed?: Yes Alcohol Intake: current Alcohol Intake frequency: a few times a month Drug use: Never Do you feel safe at home: Yes Do you feel safe in your relationship?: Yes Meds Allergies and Home Medications Allergies Allergy/AdvReac Type Severity Reaction Status Date / Time No Known Allergies Allergy Unverified 12/26/20 09:13 Home Medications Medication Instructions Recorded Confirmed Type blood sugar diagnostic [OneTouch #90 strip 06/25/12 11/17/16 History Ultra Test] lancets [InvestviewTouch Delica Lancets] #100 ea 06/25/12 11/17/16 History multivitamin 1 tab PO DAILY 06/25/12 12/26/20 History naproxen sodium 1 tab PO DAILY 12/19/13 12/26/20 History amlodipine [Norvasc] 1 tab PO QAM #90 tab 06/19/14 12/26/20 History atorvastatin [Lipitor] 1 tab PO QAM #90 tab-cap 06/19/14 12/26/20 History losartan [Cozaar] 1 tab PO QAM #90 tab 06/19/14 12/26/20 History metformin 500 mg PO BID #90 tab-cap 06/19/14 12/26/20 History metoprolol succinate [Toprol XL] 1 tab PO HS #90 tab-cap 06/19/14 12/26/20 History Exam Narrative Exam Narrative: Elderly male lying in bed in no acute distress. He is alert and oriented to person place time circumstance. HEENT is unremarkable. Pupils equally round reactive to light, extraocular motion intact. No nystagmus. Oral cavity reveals poor dentition. No exudates. Neck supple nontender no JVD normal carotid pulses no bruits no thyromegaly no cervical lymphadenopathy Lungs are clear to auscultation Heart regular rate and rhythm without murmur rub or gallop Abdomen soft and nontender nondistended without organomegaly or bruits. Upper and lower extremities without peripheral cyanosis edema he has normal range of motion normal strength. Neuro exam cranial nerves II through XII grossly intact. No visual field deficits to confrontation. Extraocular motions intact. Normal facial mimetic movement as well as normal sensation to light touch. Funduscopic exam unremarkable. DTRs intact and symmetrical 2+ out of 4 biceps and triceps brachioradialis as well as patella and ankle jerk. Babinski reflexes absent. Sensory exam over both lower extremities intact. Normal gaesxz-nd-yebs movement normal klcy-by-ndzn movement. No pronator drift. Results Labs Result diagrams: 12/26/20 10:35 12/26/20 18:00 Labs: Laboratory Results - last 24 hr 12/26/20 12/26/20 12/26/20 10:35 10:35 10:35 WBC 13.93 H RBC 4.33 L Hgb 14.1 Hct 41.8 MCV 96.5 H MCH 32.6 MCHC 33.7 RDW 12.7 Plt Count 231 MPV 10.4 Immature Gran % 0.4 Neutrophils % 84.1 Lymphocytes % 11.3 Monocytes % 3.7 Eosinophils % 0.1 Basophils % 0.4 Nucleated RBC % 0 Absolute Neutrophils 11.72 H Absolute Lymphocytes 1.57 Absolute Monocytes 0.52 Absolute Eosinophils 0.01 Absolute Basophils 0.06 D-Dimer VBG Lactate Sodium Cancelled 142 Potassium Cancelled 4.5 Chloride Cancelled 102 Carbon Dioxide Cancelled 23.1 Anion Gap Cancelled 16.9 H BUN Cancelled 20 H Creatinine Cancelled 1.3 Estimated GFR/1.73 m2 Cancelled 53.82 Glucose Cancelled 111 H Calcium Cancelled 9.3 Magnesium 2.1 Total Bilirubin Cancelled 0.7 AST Cancelled 30 ALT Cancelled 32 Alkaline Phosphatase Cancelled 68 Troponin I < 0.05 Total Protein Cancelled 7.9 Albumin Cancelled 4.4 TSH 0.74 Urine Color Urine Clarity Urine pH Ur Specific [place] Urine Protein Urine Ketones Urine Blood Urine Nitrite Urine Bilirubin Urine Urobilinogen Ur Leukocyte Esterase Urine RBC Urine WBC Ur Epithelial Cells Urine Crystals Urine Bacteria Urine Casts Urine Mucus Ur Culture Indicated? Urine Glucose COVID-19 Source SARS-CoV-2 (PCR) 12/26/20 12/26/20 12/26/20 10:35 10:55 11:05 WBC RBC Hgb Hct MCV MCH MCHC RDW Plt Count MPV Immature Gran % Neutrophils % Lymphocytes % Monocytes % Eosinophils % Basophils % Nucleated RBC % Absolute Neutrophils Absolute Lymphocytes Absolute Monocytes Absolute Eosinophils Absolute Basophils D-Dimer 1287 H VBG Lactate 2.1 H Sodium Potassium Chloride Carbon Dioxide Anion Gap BUN Creatinine Estimated GFR/1.73 m2 Glucose Calcium Magnesium Total Bilirubin AST ALT Alkaline Phosphatase Troponin I Total Protein Albumin TSH Urine Color Yellow Urine Clarity Clear Urine pH 5.5 Ur Specific [place] >= 1.030 H Urine Protein Negative Urine Ketones 80 H Urine Blood Trace-lysed H Urine Nitrite Negative Urine Bilirubin Negative Urine Urobilinogen 0.2 Ur Leukocyte Esterase Negative Urine RBC 0-2 Urine WBC 0-2 Ur Epithelial Cells Rare Urine Crystals Negative Urine Bacteria Few Urine Casts Comment Urine Mucus Moderate Ur Culture Indicated? No Urine Glucose Negative COVID-19 Source SARS-CoV-2 (PCR) 12/26/20 12/26/20 12/26/20 11:12 18:00 18:00 WBC RBC Hgb Hct MCV MCH MCHC RDW Plt Count MPV Immature Gran % Neutrophils % Lymphocytes % Monocytes % Eosinophils % Basophils % Nucleated RBC % Absolute Neutrophils Absolute Lymphocytes Absolute Monocytes Absolute Eosinophils Absolute Basophils D-Dimer VBG Lactate Sodium 141 Potassium 4.0 Chloride 105 Carbon Dioxide 23.6 Anion Gap 12.4 H BUN 15 Creatinine 1.0 Estimated GFR/1.73 m2 >= 60.00 Glucose 79 Calcium 8.3 L Magnesium Total Bilirubin AST ALT Alkaline Phosphatase Troponin I < 0.05 Total Protein Albumin TSH Urine Color Urine Clarity Urine pH Ur Specific [place] Urine Protein Urine Ketones Urine Blood Urine Nitrite Urine Bilirubin Urine Urobilinogen Ur Leukocyte Esterase Urine RBC Urine WBC Ur Epithelial Cells Urine Crystals Urine Bacteria Urine Casts Urine Mucus Ur Culture Indicated? Urine Glucose COVID-19 Source Nasal/Nares SARS-CoV-2 (PCR) Negative 12/26/20 18:00 WBC RBC Hgb Hct MCV MCH MCHC RDW Plt Count MPV Immature Gran % Neutrophils % Lymphocytes % Monocytes % Eosinophils % Basophils % Nucleated RBC % Absolute Neutrophils Absolute Lymphocytes Absolute Monocytes Absolute Eosinophils Absolute Basophils D-Dimer VBG Lactate 1.1 Sodium Potassium Chloride Carbon Dioxide Anion Gap BUN Creatinine Estimated GFR/1.73 m2 Glucose Calcium Magnesium Total Bilirubin AST ALT Alkaline Phosphatase Troponin I Total Protein Albumin TSH Urine Color Urine Clarity Urine pH Ur Specific [place] Urine Protein Urine Ketones Urine Blood Urine Nitrite Urine Bilirubin Urine Urobilinogen Ur Leukocyte Esterase Urine RBC Urine WBC Ur Epithelial Cells Urine Crystals Urine Bacteria Urine Casts Urine Mucus Ur Culture Indicated? Urine Glucose COVID-19 Source SARS-CoV-2 (PCR) Last Vital Signs Temp 36.9 C 12/26/20 18:58 Pulse 68 12/26/20 19:02 Resp 16 12/26/20 18:58 BP 148/77 H 12/26/20 18:58 Pulse Ox 98 12/26/20 18:58 PAWSS Have you Been Recently Intoxicated or Drunk Within the Last 30 days?: No Have you Ever Experienced Previous Episodes of Alcohol Withdrawal?: No Have you ever Experienced Withdrawal Seizures?: No Have you ever Experienced Delirium Tremens(DT)s?: No Have you ever undergone Alcohol Rehabilitation Treatment (i.e, inpt ot outpatient treatment programs)?: No Have you ever Experienced Blackouts?: No Have you ever Combined Alcohol with other Downers within the last 90 days?: No Have you ever Combined Alcohol with any other Substance of Abuse during the last 90 days?: No Positive Blood Alcohol level on Presentation? [PCS.BAL]: No Evidence of Increased Autonomic Activity (i.e. HR>120, tremor, sweating, agitation, nausea)?: No Result: 0
[2020-12-26] MEDS: Metoprolol CR 100 MG TABCR PO (21:39)
[2020-12-27 03:45] VITALS: BP 139/74; PULSE 59; RESP 17; TEMP 37.2; O2SAT 94
[2020-12-27 04:03] LABS: Clarity Clear (Clear); Glucose Negative (Negative); Leukocyte Esterase Negative (Negative); Nitrite Negative (Negative); Specific Gravity 1.025 (1.005-1.025)
[2020-12-27 04:04] LABS: Bacteria Negative HPF (Negative); Bilirubin Negative (Negative); Blood Trace-intact (Negative); C & S Indicated? C&S Done As Ordered; Casts Negative LPF (Negative); Crystals Negative HPF (Negative); Epithelial Cells Negative HPF (Negative); Ketones 40 mg/dL (Negative); Mucus Negative (Negative); Urobilinogen 0.2 EU/dL (Up TO 0.2); WBC Negative HPF (0-5)
--- NOTE | 2020-12-27 07:00 | DI.US_ITS ---
APPROVED REPORT EXAM: Comprehensive 2D, Doppler, and color-flow Echocardiogram Patient Location: In-Patient Grounds Foreman: Jennifer Woodard RDCS (AE) Indications: Evaluate LV, RV function, HTN Other Information Study Quality: Good Conclusion Normal left ventricular wall thickness and chamber size. Estimated ejection fraction is 60%. Wall m otion is normal Normal right ventricular size and systolic function Both atria are normal in size Aortic valve is trileaflet without stenosis or regurgitation Mild mitral annular calcification. Mild mitral regurgitation Normal tricuspid valve with trace to mild regurgitation. Estimated right ventricular systolic pressu re is normal, 27 mmHg Mildly dilated ascending aorta measuring 3.55 cm Wall motion Left Ventricle The left ventricle is normal size. The left ventricular systolic function is normal. The left ventric ular ejection fraction is within the normal range. There is normal left ventricular wall thickness. T here is normal LV segmental wall motion. There is no ventricular septal defect visualized. LVEF is 60 %. Right Ventricle The right ventricle is normal size. The right ventricular systolic function is normal. The RVSP is 26 .9 mmHg. Atria The left atrium size is normal. The right atrium size is normal. The interatrial septum is intact wit h no evidence for an atrial septal defect. Aortic Valve The aortic valve is normal in structure. Aortic valve is trileaflet. There is no aortic valvular sten osis. No aortic regurgitation is present. Mitral Valve Mild mitral annular calcification. No evidence of mitral valve stenosis. Mild mitral regurgitation. Tricuspid Valve The tricuspid valve is normal in structure. There is no tricuspid valve stenosis. Trace to mild tricu spid regurgitation. Pulmonic Valve The pulmonary valve is normal in structure. There is no pulmonic valvular stenosis. Trace pulmonic re gurgitation. Great Vessels The aortic root is normal in size. The ascending aorta is mildly dilated. Aortic arch is not well vis ualized. IVC is normal in size and collapses >50% with inspiration. Pericardium There is no pericardial effusion. 2D Dimensions IVSD d PLAX 0.98 cm M: 0.6-1.2 LV Vol A2C d MOD 136.3 mL LVPW d PLAX 0.99 cm M: 0.6 - 1.2 LV Vol A4C d MOD 119.8 mL LVID d PLAX 5.09 cm M: 4.2 - 5.8 LA vol/ BSA A2C s A-L 30.2 mL/m2 LVDs 3.50 cm M: 2.5 - 4.0 LA vol/ BSA A4C s A-L 29.3 mL/m2 Ao Root d 2.64 cm M: 3.1 - 3.7 LA Vol/ BSA Biplane s A-L 32.0 mL/m2 RA Area A4C 12.25 cm2 LA Area A4C s MOD 19.11 cm2 RA Vol/ BSA A4C s A-L 15.1 mL/m2 LA Area A2C s MOD 18.05 cm2 Ao Asc Diam d 3.55 cm M: 2.6 - 3.4 LV EF A4C MOD 58.7 % LV EF Teichholz 57.4 % LV EF A2C MOD 58.6 % LVEF (Bahena's) 57.98 % M: 52 - 72 LV EF Biplane MOD 58.0 % LV Volume 103.01 mL M: 62 - 150 SV 76.70 mL LV Volume Index 57.54 mL/m2 M: 34 - 74 SV Index 42.74 mL/m2 LV Vol Biplane MOD 132.3 mL FS 30.30 % LV Diastology MV E' medial 0.077 (>0.07 m/s) E/A Ratio 0.9 LV E/e MED 8.00 (<14) MV E Vmax 0.62 (0.4-1.3 m/s) MV E' lateral 0.106 (>0.1 m/s) MV A Vmax 0.70 (0.4-1.3 m/s) LV E/e LAT 5.85 (<14) MV E/A Ratio 0.83 MV E/E' medial 8.02 MV E/E' lateral 5.86 Aortic Valve LVOT Area 3.34 cm2 AoV Area Vmax 2.92 cm2 LVOT Vmax 1.05 m/s AoV Area/ BSA (Vmax) 1.63 cm2/m2 LVOT Mean Eduard. 0.67 m/s RODRIGO Mean Eduard. 2.74 cm2 LVOT Peak Grad 4.4 mmHg RODRIGO Mean Eduard. Index 1.53 cm2/m2 LVOT Mean Grad 2.1 mmHg LVOT VTI 0.259 m LVOT Diam s 2.05 cm AoV Vmax 1.20 m/s Velocity Ratio 0.87 AoV Mean Eduard. 0.81 m/s AoV Peak Grad 5.8 mmHg LVOT SV 86.25 mL AoV Mean Grad 3.0 mmHg AoV VTI 0.263 m AoV Area VTI 3.28 cm2 AoV Area/ BSA (VTI) 1.83 cm/m2 Mitral Valve MV DT 215 (160-240 msec) MR Vmax 4.77 m/s MV PHT 62 msec MR VTI 1.754 m MV Area PHT 3.53 cm2 MR Peak Grad 90.9 mmHg MV VTI 0.307 m MR Mean Grad 66.4 mmHg MV VTI Annulus 0.313 m MR PISA Radius 0.52 cm MV Area VTI 2.86 (4.0-6.0 cm2) MR EROA 0.12 cm2 MR Aliasing Velocity 0.35 m/s MR PISA 1.69 cm2 Pulmonary Valve PV Vmax 0.97 (0.5-1.5 m/s) RVOT Peak Gr. 1.49 mmHg PV Peak Grad 3.8 mmHg RVOT Mean Gr. 0.75 mmHg PV Mean Grad 2.0 mmHg RVOT VTI 0.151 m PV VTI 0.221 m RVOT Vmax 0.61 m/s Tricuspid Valve TR Peak Grad 23.9 mmHg TR Vmax 2.44 m/s RA Pressure 3.00 mmHg RVSP (TR) 26.9 mmHg
[2020-12-27 07:14] LABS: Abs Immature Grans 0.02 10^3/uL (0.0-0.06); Absolute Basophil Count 0.05 10^3/uL (0.0-0.2); Absolute Eosinophil Count 0.25 10^3/uL (0.0-0.7); Absolute Lymphocyte Count 3.12 10^3/uL (1.2-3.4); Absolute Monocyte Count 1.05 10^3/uL (0.1-0.8); Absolute Neutrophil Count 4.49 10^3/uL (1.2-6.7); Basophils % 0.6; Eosinophils % 2.8; HCT 36.4 % (40.0-50.0); HGB 12.4 g/dL (13.5-17.5); Immature Grans % 0.2; Lymphocytes % 34.7; MCH 32.5 pg (27.0-33.0); MCHC 34.1 % (32.0-36.0); MCV 95.3 fL (80-95); MPV 10.9 fL (8.0-11.0); Monocytes % 11.7; Nucleated RBC 0 %; Platelet Count 208 10^3/uL (130-400); RBC 3.82 10^6/uL (4.36-5.78); RDW 12.9 % (11.8-14.1); RDW-SD 44.7 fL; WBC 8.98 10^3/uL (4.4-10.8)
[2020-12-27 07:27] LABS: Hemoglobin A1C 6.2 % (<5.7)
[2020-12-27 07:28] LABS: BUN 20 mg/dL (7-18); CREATININE 1.1 mg/dL (0.70-1.30); Calcium 8.2 mg/dL (8.5-10.1); Calculated LDL 71 mg/dL (<100); Chloride 104 mmol/L (98-107); Cholesterol 148 mg/dL (<200); Glucose 86 mg/dL (74-106); HDL Cholesterol 49 mg/dL (40-60); Potassium 3.5 mmol/L (3.5-5.1); Sodium 141 mmol/L (136-145); Triglyceride 144 mg/dL (<150)
[2020-12-27 07:29] VITALS: BP 116/71; PULSE 57; RESP 17; TEMP 36.9; O2SAT 95
[2020-12-27 07:59] VITALS: PULSE 55
[2020-12-27] MEDS: amLODIPine 5 MG TAB PO (08:28)
[2020-12-27] MEDS: Atorvastatin 40 MG TAB PO (08:28)
[2020-12-27] MEDS: Losartan 50 MG TAB PO (08:28)
[2020-12-27] MEDS: Aspirin E.C. 81 MG TABEC PO (08:29)
[2020-12-27] MEDS: Multivitamin TAB 1 TAB PO (08:29)
[2020-12-27] MEDS: Insulin Aspart 300 UNITS/3 ML PEN SC ×3 (08:33→12:08)
--- NOTE | 2020-12-27 09:51 | IN_ITS ---
Date of service: 12/27/20 Time of Service: 09:51 PT Notes Visit Reasons: Generalized Weakness,Ambulatory Dysfunction Physical Therapy Inpatient Initial Evaluation Date: 12/27/2020 Referring Doctor: Danish Bragg MD PT Orders: PT CONSULT: Fall safety assessment Precautions: Fall. Standard. Activity as tolerated. Patient Profile/Admitting Diagnosis: Terence is a 75-year-old male who presented to the ED on 12/26/2020 with shakiness, lightheadedness, difficulty walking, and generalized weakness. Patient is diagnosed with unsteady gait with positive Romberg and atherosclerotic cerebrovascular disease. PMHX: Medical History (Updated 12/26/20 @ 23:34 by Danish Bragg) DM (diabetes mellitus) HTN (hypertension) Surgical History Colonoscopy - IV Sedation (06/09/16) Colonoscopy - MAC 10/23 hernia repair ight herniorrhaphy x2 Social History/Home Situation: Lives with in a private home with 12 steps to enter through the garage, rails on both sides. Independent with all aspects of ADLs. Does not use any assistive ambulatory device or adaptive equipment. 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 Equipment Owned/DME: None Subjective: Reports pain in his right shoulder which he states has been going on for over 3 years now. Indicates that pain responds well to a pain patch that he puts at home. States that he has not done anything for the past 2 days and is ot sure how he will do with mobility assessment. Objective: General Observation: Sitting at edge of bed Mental Status: Alert and oriented as to person, place, time, and purpose. Able to pay attention, focus, and respond appropriately. Pain: 0/10 ROM: Right Upper Extremity: Shoulder Flexion WFL with pain at end range of motion. Shoulder abduction WFL. Elbow flexion WFL. Wrist flexion WFL. Functional opening and closing of hand WFL. Left Upper Extremity: Shoulder Flexion WFL. Shoulder abduction WFL. Elbow flexion WFL. Wrist flexion WFL. Functional opening and closing of hand WFL. Right Lower Extremity: Hip flexion WFL. Hip abduction WFL. Knee flexion WFL. Ankle dorsiflexion WFL. Ankle plantarflexion WFL. Left Lower Extremity: Hip flexion WFL. Hip abduction WFL. Knee flexion WFL. Ankle dorsiflexion WFL. Ankle plantarflexion WFL. Strength: Right Upper Extremity: Shoulder flexors 4/5. Shoulder abductors 4/5. Elbow flexors 5/5. Elbow extensors 5/5. Hedis Registered Nurse Rn strong. Left Upper Extremity: Shoulder flexors 5/5. Shoulder abductors 5/5. Elbow flexors 5/5. Elbow extensors 5/5. Hedis Registered Nurse Rn strong. Right Lower Extremity: Hip flexors 5/5. Hip abductors 5/5. Knee flexors 5/5. Knee extensors 5/5. Ankle dorsiflexors 5/5. Ankle plantarflexors 5/5. Left Lower Extremity: Hip flexors 5/5. Hip abductors 5/5. Knee flexors 5/5. Knee extensors 5/5. Ankle dorsiflexors 5/5. Ankle plantarflexors 5/5. Bed Mobility/Transfers: Rolling independent Supine to sit independent Sit to supine independent Sit to stand independent Stand to sit independent Bed to reclining independent Reclining chair to bed independent Gait: Instructed patient with level surface ambulation of 400 feet independently. Step through gait pattern. Denies headache, chest pain, dizziness throughout activity. Balance: Static Sitting: Normal Dynamic Sitting: Normal Static Standing: Normal Dynamic Standing: Good Special Tests: Mobility Limitations Standardized Measure [facility] 6 clicks [facility] Mobility Inpatient Short Form: Raw Score:24 CMS Score: 0% deficit ROMBERG TEST: Initially had minimal instability and shaking but performed well with the second trial and with shoes on. RAPID ALTERNATING MOVEMENT: Intact 4-Stage Balance Test: Able to maintain all 4 4 positions for 10 seconds with shoes on and with two trials provided. 30-second chair rise: 9 reps Informed Consent/Education: Patient was instructed in purpose of PT consult and plan of care. Agreeable to proceed with established PT POC to achieve personal goals. Assessment: Strength symmetric. Coordination intact at time of testing. Low risk for falls. No assistive ambulatory device needed. Chronic shoulder pain may need to be seen by product distribution specialist for reassessment. Patient is assessed as a 09787 low complexity based on the following: History: 75 [id number] with past medical history as indicated above Examination: Demonstrable impairment in strength, balance, and mobility level with underlying impairments and functional limitations as exhibited above as well as deficit score of 0% utilizing the [facility] Mobility Inpatient Short Form Presentation: Stable Decision Makin low complexity Goals: N/A. PT evaluation 1 treatment session only for HEP instruction. Plan of Care/Treatment Plan: N/A. PT evaluation 1 treatment session only for HEP instruction. DISCHARGE RECOMMENDATIONS: [X] Home with no services. Home when medically cleared by hospitalist. No equipment needs at this time. May benefit from orthopedic reassessment of chronic shoulder pain. [] Home with services [specify] [] Home with outpatient PT [] [] SNF for continued rehabilitation [] [] [facility] Care [] [] SNF versus LTC based on ability to participate and progress [] TREATMENT CODE/TIME: 90815 x 20 minutes, 14826 x 16 minutes beginning at 9:51 AM. Thank you for the opportunity to participate in the care of this patient. Bella Sibley PT, DPT, CLT [facility] [place], [place]
--- NOTE | 2020-12-27 10:39 | W.INDIABCONS ---
Date of service: 12/27/20 Time of Service: 10:39 Diabetes Inpatient Consult DESCRIPTION/ASSESSMENT: Assessment: 75yo male admitted with atherosclerotic cerebrovascular disease with unsteady gaint and lightheadedness. PMH significant for HTN, diabetes. Current BMI of 26.1 c/w overweight. Weight stable greater than 1 year. Most recent a1c 6.2% correlates with excellent glycemic control (<7% x last 5 years). Diabetic consistent CHO/heart healthy diet with normal textures ordered ? fair appetite reported in our brief conversation. Pt declines out-patient support at this time. Estimated nutrition needs: 1777kcals (25kcals/kg), 71g protein (1g/kg) and 1777mL fluid (age adjusted weight method). Diagnosis: no nutrition-related diagnosis at this time Intervention: acknowledging diabetes education consult. Will continue to support Mr. Jules?s nutrition needs while admitted. Monitoring/evaluation: will follow for any nutrition-related concerns or needs. Lakhwinder Valdovinos NDTR ? Multimedia Instructional Designer Time Spent in Nutritional Counseling and Treatment: 0
--- NOTE | 2020-12-27 10:50 | CMDISCH_ITS ---
LACE Index Scoring Tool - Questions: Length of Stay (in days): 1 Acuity (Admit via E.D.?): Yes Comorbidities: Diabetes w/o Complication E.D. Visits: 1 - Answers: Total Score: 6 Risk of Readmission: Low Risk Care Management Discharge Reason for Hospitalization: Generalized weakness, ambulatory dysfunction Discharge Plan: Terence will discharge home with no additional needs at this time. He will follow up with his PCP and plan of care as prescribed. Per report, he intends on relocating to [facility] for the winter with his . He will transport via private vehicle with his daughter. Patient/Family Education Needs: Review discharge instructions, discuss Ask Me Three.
[2020-12-27 11:17] VITALS: BP 132/69; PULSE 52; RESP 17; TEMP 36.6; O2SAT 94
--- NOTE | 2020-12-27 11:21 | W.PM.DS.N ---
Date of service: 12/27/20 Time of Service: 11:22 DS: Diagnosis Discharge Diagnosis (1) Unsteady gait: Status: Acute (2) Lightheadedness: Status: Acute (3) HTN (hypertension): Status: None (4) DM (diabetes mellitus): Status: None (5) Atherosclerotic cerebrovascular disease: Status: Acute Discharge Plan Disposition Patient Disposition: HOME Condition: Stable Discharge Details Reason For Visit: Generalized Weakness,Ambulatory Dysfunction Admit Date/Time: 12/26/20 17:28 Admit Provider: Danish Bragg Attending Provider: Danish Bragg Primary Care Provider: [facility] Course: This is a 75 year old male history of type 2 diabetes mellitus on Metformin, essential hypertension (on Norvasc, losartan, Toprol-XL), hyperlipidemia treated with atorvastatin, who usually lives with his but his has been out of town in [place] for the last 3 weeks. Patient had awoken this morning around 5:55 AM and got up to the bathroom felt very weak shaky felt like he was going to pass out but did not lose consciousness and did not fall. He voided and walked back to the bedroom to lie down. After laying down he felt better. He had no vertigo symptoms although he did have some nausea but no vomiting. He denied a headache or blurred vision or vision loss and denied any focal paresthesias or paraparesis. He tried to get out of bed to get some breakfast around 630 or 7 AM and again felt very lightheaded but was able to walk to the chair in the living room and sat down and called his daughter. This is around 7 AM. He was brought to the emergency department at 8:45 AM accompanied by his daughter. His daughter gave additional information to the ER personnel that the patient's been having difficulty with his memory with frequent word finding difficulty and difficulty recalling names of extended family members. She also noted these not been eating right since her mother went to [place]. In the emergency department the patient underwent diagnostic work-up including routine labs EKG noncontrast CT scan of the head and subsequently underwent MRI of the brain as well as MRA of the brain and MRA of the cervical vessels. CBC demonstrated a white count of 13,900 with no anemia hemoglobin 14.1 g normal platelet count 2 31,000. CMP demonstrated an increased anion gap of 16.9 and a BUN of 20 creatinine 1.3 glucose 111. Transaminases and the rest of his electrolytes were normal. Troponin I level was less than 0.05. TSH was normal 0.74. Repeat troponin was ordered to be done around 130 this afternoon but did not get completed till 1800 tonight fortunately this was also normal at less than 0.05. His D-dimer is elevated at 1287 prompting a work-up with a CTA of his chest. Urinalysis shows specific gravity greater than 1.030 with 80 mg/dL ketones but negative for glucose. Nitrites and urine protein and leukocyte esterase were all negative. He had only 0-2 red cells and 0-2 white cells per high-powered field but had moderate mucus as well as 0-2 granular casts and 5-[address] scan of his head showed no acute intracranial findings but suggested some sinus mucosal thickening without any fluid collections. MRI of the brain showed no evidence of acute infarction but showed mild chronic small vessel ischemic changes. MRA of the brain showed mild intracranial arterial sclerosis without high-grade stenosis or evidence of anterior large vessel occlusion. Patient did have mild irregular narrowing of the distal left V4 segment of the left anterior cerebral artery. Patient also had persistent origin of the left posterior cerebral artery with a diminutive left P1 segment. The basilar artery had mild irregular narrowing. MRA of the cervical vessels showed moderate stenosis of the proximal right internal carotid artery at 60% and mild stenosis of the left internal carotid artery origin at less than 50% along with irregular narrowing of the distal right and left vertebral arteries. EKG demonstrated normal sinus rhythm at rate and [address] or T wave changes. Treatment included IV fluid hydration. Patient was given 2 L of normal saline while in the emergency department. Patient was admitted to the hospital on observation status to evaluate for arrhythmias versus TIAs versus generalized deconditioning versus dehydration as a cause for his gait instability and complaints of lightheadedness and shakiness. His laboratory studies certainly suggest some dehydration and poor oral intake as demonstrated by the ketosis on his urinalysis and his elevated specific gravity and elevated BUN to creatinine ratio. His elevated white count is of some concern for potential infection although the patient is afebrile and denies any dysuria or fever or chills or dyspnea or cough. Patient was monitored overnight for any fevers and repeat CBC with was unremarkable and no fevers. Repeat urinalysis has been ordered. Because the blood lactate was not repeated after he was hydrated I did get another lactate level and another BMP this evening. His BUN is now down to 15 his creatinine is 1.0 and his anion gap is decreased to 12.4. His repeat lactate is now normal at 1.1. He was evaluated by PT and cleared for discharge to home without services. He is stable for discharge to home, no medication changes, no services. He will f/u outpatient regarding cognitive decline. discharge discussed with Dr Manning. Home Meds and New Rx's Prescriptions: Continued multivitamin 1 EACH tablet 1 tab PO DAILY RF: 0 (DME) blood sugar diagnostic [RingpayTouch Ultra Test] 1 EACH strip 1 strip Miscellaneous QAM Qty: 90 RF: 4 (DME) lancets [OneTouch Delica Lancets] 1 EACH misc 1 ea Intradermal QAM Qty: 100 RF: 4 naproxen sodium 220 MG tablet 1 tab PO DAILY RF: 0 losartan [Cozaar] 50 MG tablet 1 tab PO QAM Qty: 90 RF: 4 atorvastatin [Lipitor] 40 MG tablet 1 tab PO QAM Qty: 90 RF: 4 metoprolol succinate [Toprol XL] 100 MG tablet extended release 24 hr 1 tab PO HS Qty: 90 RF: 4 amlodipine [Norvasc] 5 MG tablet 1 tab PO QAM Qty: 90 RF: 4 metformin 500 MG tablet extended release 24hr 500 mg PO BID Qty: 90 RF: 3 Discharge Instructions Instructions: Dehydration (DC) Additional Instructions: continue usual medication Stand Alone Forms: Nursing Discharge Form Referrals: Christiano Castro [Primary Care Provider] - (Please call your PCP to schedule a follow up appointment for 1-2 weeks.) Yanni Kaba MD [ [facility] STAFF PHYSICIAN] - Activity:: Activity as Tolerated Equipment/Supplies:: No Equipment Needed Diet:: Carb Counting Discharge Orders Discharge Orders: Discharge Order (Routine); Ordered 12/27/20 Ordered By: Ketty Gunn Discharge Data Discharge Date/Time-TO BE ENTERED AT DEPARTURE: 12/27/20 16:40 DS: Summary Time Spent with Patient providing and/or coordinating discharge services: Less than 30 minutes Status at Discharge Functional status at discharge: independent ambulation Overall status at discharge: patient is back to baseline Mental Status: other (some cognitive impairment) Speech and Movement: speech and movement normal Mood: congruent mood and other (some cognitive impairment) Affect: normal affect Exam Const General: cooperative, healthy appearing, comfortable and no acute distress Nutritional Appearance: average body habitus Orientation: alert, awake and oriented x3 HENID Head: normal to inspection, normocephalic and atraumatic Mouth: oral mucosae normal Chest Chest: normal inspection of the chest Resp Effort & Inspection: normal respiratory effort Auscultation: clear to auscultation bilaterally Cardio Rate: regular rate Rhythm: regular rhythm GI Inspection: normal to inspection Palpation: soft Auscultation: normal bowel sounds Skin General skin exam: no rashes or lesions noted Neuro General: patient alert, patient awake, patient oriented x3 (some memory deficit), gait normal, tone normal, moves all extremities and no focal motor deficits Extrem General: normal to inspection, full ROM and no pedal edema Psych Mental Status: other (some cognitive impairment) Speech and Movement: speech and movement normal Mood: congruent mood and other (some cognitive impairment) Affect: normal affect DS: Data Vitals/I&O Vitals and I&O: Vital Signs Temperature 36.6 C 12/27/20 11:17 Temperature Source Tympanic 12/27/20 11:17 Pulse 52 L 12/27/20 11:17 Pulse Rhythm Regular 12/27/20 04:57 Pulse 64 12/26/20 20:10 Respiratory Rate 17 12/27/20 11:17 Respiratory Effort 12/27/20 04:57 Respiratory Depth Normal 12/27/20 04:57 Respiratory Pattern Irregular 12/27/20 04:57 Blood Pressure 132/69 12/27/20 11:17 Blood Pressure Mean 84 12/26/20 18:31 Pulse Oximetry 94 12/27/20 11:17 Oxygen Delivery Method Room Air 12/27/20 11:17 Oxygen Flow Rate 0 12/27/20 11:17 Pain Level 0 12/27/20 11:17 Comment 12/26/20 14:32 Intake & Output 12/26/20 12/26/20 12/27/20 11:59 23:59 11:59 Intake Total 2249 2240 / 2250 Output Total 1000 / 1000 500 / 500 Balance 1249 1240 / 1250 -500 / -500 Weight 74.8 kg 72.4 kg 71.1 kg Intake: IV 2009 Oral 240 / 240 Output: Urine 1000 / 1000 500 / 500 Other: Urine Color Yellow Urine Appearance Clear Urine Odor Normal Voiding Methods Toilet Data Completed and Pending Labs on day of discharge: Labs from last 24 hours 12/27/20 12/27/20 12/27/20 06:17 06:17 06:17 WBC 8.98 D RBC 3.82 L Hgb 12.4 L Hct 36.4 L MCV 95.3 H MCH 32.5 MCHC 34.1 RDW 12.9 Plt Count 208 MPV 10.9 Immature Gran % 0.2 Neutrophils % 50.0 Lymphocytes % 34.7 Monocytes % 11.7 Eosinophils % 2.8 Basophils % 0.6 Nucleated RBC % 0 Absolute Neutrophils 4.49 Absolute Lymphocytes 3.12 Absolute Monocytes 1.05 H Absolute Eosinophils 0.25 Absolute Basophils 0.05 D-Dimer VBG Lactate Sodium 141 Potassium 3.5 Chloride 104 Carbon Dioxide 26.0 Anion Gap 11.0 BUN 20 H Creatinine 1.1 Estimated GFR/1.73 m2 >= 60.00 Glucose 86 Hemoglobin A1c 6.2 H Calcium 8.2 L Troponin I Triglycerides 144 Total Cholesterol 148 LDL Cholesterol, Calc 71 HDL Cholesterol 49 Urine Color Urine Clarity Urine pH Ur Specific [place] Urine Protein Urine Ketones Urine Blood Urine Nitrite Urine Bilirubin Urine Urobilinogen Ur Leukocyte Esterase Urine RBC Urine WBC Ur Epithelial Cells Urine Crystals Urine Bacteria Urine Casts Urine Mucus Ur Culture Indicated? Urine Glucose SARS-CoV-2 (PCR) 12/27/20 12/26/20 12/26/20 03:19 18:00 18:00 WBC RBC Hgb Hct MCV MCH MCHC RDW Plt Count MPV Immature Gran % Neutrophils % Lymphocytes % Monocytes % Eosinophils % Basophils % Nucleated RBC % Absolute Neutrophils Absolute Lymphocytes Absolute Monocytes Absolute Eosinophils Absolute Basophils D-Dimer VBG Lactate 1.1 Sodium 141 Potassium 4.0 Chloride 105 Carbon Dioxide 23.6 Anion Gap 12.4 H BUN 15 Creatinine 1.0 Estimated GFR/1.73 m2 >= 60.00 Glucose 79 Hemoglobin A1c Calcium 8.3 L Troponin I Triglycerides Total Cholesterol LDL Cholesterol, Calc HDL Cholesterol Urine Color Yellow Urine Clarity Clear Urine pH 6.0 Ur Specific [place] 1.025 Urine Protein Negative Urine Ketones 40 H Urine Blood Trace-intact H Urine Nitrite Negative Urine Bilirubin Negative Urine Urobilinogen 0.2 Ur Leukocyte Esterase Negative Urine RBC 3-5 H Urine WBC Negative Ur Epithelial Cells Negative Urine Crystals Negative Urine Bacteria Negative Urine Casts Negative Urine Mucus Negative Ur Culture Indicated? C&S Done As Ordered Urine Glucose Negative SARS-CoV-2 (PCR) 12/26/20 12/26/20 12/26/20 18:00 11:12 11:05 WBC RBC Hgb Hct MCV MCH MCHC RDW Plt Count MPV Immature Gran % Neutrophils % Lymphocytes % Monocytes % Eosinophils % Basophils % Nucleated RBC % Absolute Neutrophils Absolute Lymphocytes Absolute Monocytes Absolute Eosinophils Absolute Basophils D-Dimer 1287 H VBG Lactate Sodium Potassium Chloride Carbon Dioxide Anion Gap BUN Creatinine Estimated GFR/1.73 m2 Glucose Hemoglobin A1c Calcium Troponin I < 0.05 Triglycerides Total Cholesterol LDL Cholesterol, Calc HDL Cholesterol Urine Color Urine Clarity Urine pH Ur Specific [place] Urine Protein Urine Ketones Urine Blood Urine Nitrite Urine Bilirubin Urine Urobilinogen Ur Leukocyte Esterase Urine RBC Urine WBC Ur Epithelial Cells Urine Crystals Urine Bacteria Urine Casts Urine Mucus Ur Culture Indicated? Urine Glucose SARS-CoV-2 (PCR) Negative 12/26/20 10:55 WBC RBC Hgb Hct MCV MCH MCHC RDW Plt Count MPV Immature Gran % Neutrophils % Lymphocytes % Monocytes % Eosinophils % Basophils % Nucleated RBC % Absolute Neutrophils Absolute Lymphocytes Absolute Monocytes Absolute Eosinophils Absolute Basophils D-Dimer VBG Lactate Sodium Potassium Chloride Carbon Dioxide Anion Gap BUN Creatinine Estimated GFR/1.73 m2 Glucose Hemoglobin A1c Calcium Troponin I Triglycerides Total Cholesterol LDL Cholesterol, Calc HDL Cholesterol Urine Color Yellow Urine Clarity Clear Urine pH 5.5 Ur Specific [place] >= 1.030 H Urine Protein Negative Urine Ketones 80 H Urine Blood Trace-lysed H Urine Nitrite Negative Urine Bilirubin Negative Urine Urobilinogen 0.2 Ur Leukocyte Esterase Negative Urine RBC 0-2 Urine WBC 0-2 Ur Epithelial Cells Rare Urine Crystals Negative Urine Bacteria Few Urine Casts Comment Urine Mucus Moderate Ur Culture Indicated? No Urine Glucose Negative SARS-CoV-2 (PCR) 12/27/20 03:19 Urine - Clean Catch Urine Culture - Pending Preliminary micro results at discharge 12/27/20 03:19 Urine Culture - Pending Urine - Clean Catch [facility] Medical History (Updated 12/26/20 @ 23:34 by Danish Bragg) DM (diabetes mellitus) HTN (hypertension) Surgical History Colonoscopy - IV Sedation (06/09/16) Colonoscopy - MAC 10/23 hernia repair right herniorrhaphy x2 Family History Mother Essential hypertension Heart disease Stroke Father Diabetes Personal history of malignant neoplasm PROSTATE Heart disease Hyperlipidemia Stroke Sister No problems noted. Grandmother Essential hypertension Heart disease Grandfather Personal history of malignant neoplasm Grandfather Personal history of malignant neoplasm PROSTATE/SKIN Grandmother Stroke Social History Smoking/Tobacco Use Status: Former Tobacco Use Smoking risk assessment performed?: Yes Alcohol Intake: current Alcohol Intake frequency: a few times a month Drug use: Never Do you feel safe at home: Yes Do you feel safe in your relationship?: Yes
[2020-12-27 15:25] VITALS: PULSE 66
[2020-12-27 15:27] VITALS: BP 144/78; PULSE 50; RESP 18; TEMP 36.5; O2SAT 97
== END 2020-12-27 16:40 | disposition home or self-care (01) ==
LOC: ER 17:31 → MS 18:50
PROVIDERS: Student in an Organized Health Care Education/Training Program; Admitting Provider Internal Medicine; Emergency Provider Emergency Medicine; PCP Family Medicine; Visit Provider Internal Medicine
DX: R26.81 Unsteadiness on feet (principal); R42 Dizziness and giddiness; I10 Essential (primary) hypertension; I67.2 Cerebral atherosclerosis; E11.9 Type 2 diabetes mellitus without complications; Z87.891 Personal history of nicotine dependence; Z79.84 Long term (current) use of oral hypoglycemic drugs; Z20.822 Contact with and (suspected) exposure to COVID-19; I65.23 Occlusion and stenosis of bilateral carotid arteries
CPT/HCPCS: 36415; 70544; 70547; 71275; 80048; 80053; 80061; 87635; 93005; 93306; 97161; 97530; 99285; J1650; 70450; 70551; 71046; 81003; 81015; 83036; 83605; 83735; 84443; 84484; 85025; 85379; 87086; 93010; 99217; 99219; G0378; J3490

== ENCOUNTER → 2020-12-27 07:45 | Outpatient (BNVA) | payer MEDICARE, OTHER, SELFPAY | PROVIDERS: PCP Family Medicine; Referring Provider Family Medicine; Visit Provider Psychiatry & Neurology Neurology | DX: R69 Illness, unspecified (principal) ==

== ENCOUNTER 2021-06-06 12:10 | Outpatient (REF) | payer MEDICARE, SELFPAY ==
[2021-06-06 15:51] LABS: HCT 39.3 % (40.0-50.0); HGB 13.3 g/dL (13.5-17.5); MCH 32.3 pg (27.0-33.0); MCHC 33.8 % (32.0-36.0); MCV 95.4 fL (80-95); MPV 11.3 fL (8.0-11.0); Platelet Count 257 10^3/uL (130-400); RBC 4.12 10^6/uL (4.36-5.78); RDW 12.4 % (11.8-14.1); RDW-SD 43.1 fL; WBC 9.16 10^3/uL (4.4-10.8)
[2021-06-06 16:33] LABS: Anion Gap 7.7 mmol/L (3-11); BUN 15 mg/dL (7-18); CO2 28.3 mmol/L (21.0-32.0); CREATININE 1.5 mg/dL (0.70-1.30); Chloride 104 mmol/L (98-107); Glucose 114 mg/dL (74-106); Potassium 4.3 mmol/L (3.5-5.1); Sodium 140 mmol/L (136-145)
== END 2021-06-06 12:11 | disposition home or self-care (01) ==
LOC: LBN 12:10
PROVIDERS: PCP Family Medicine; Visit Provider Family Medicine
DX: N28.9 Disorder of kidney and ureter, unspecified (principal); R55 Syncope and collapse
CPT/HCPCS: 80048; 85027

== ENCOUNTER → 2021-06-17 13:45 | Outpatient (BNVA) | payer MEDICARE, SELFPAY | PROVIDERS: PCP Family Medicine; Referring Provider Family Medicine; Visit Provider Psychiatry & Neurology Neurology | DX: R42 Dizziness and giddiness (principal); R00.1 Bradycardia, unspecified; R41.3 Other amnesia | CPT/HCPCS: 99215 ==

== ENCOUNTER 2021-06-21 22:21 | Outpatient (REF) | payer MEDICARE, SELFPAY ==
[2021-06-21 17:35] LABS: Vitamin B12 435 pg/mL (193-986)
== END 2021-06-21 22:22 | disposition home or self-care (01) ==
LOC: LBN 22:21
PROVIDERS: PCP Family Medicine; Visit Provider Psychiatry & Neurology Neurology
DX: G62.9 Polyneuropathy, unspecified (principal); R41.3 Other amnesia
CPT/HCPCS: 82607

== ENCOUNTER 2021-07-17 20:15 | Outpatient (REF) | payer MEDICARE, SELFPAY ==
[2021-07-17 20:32] LABS: Iron 99 ug/dL (65-175); Total Iron Binding Capacity 275 ug/dL (250-450); Transferrin Sat 36 % (20-55)
[2021-07-17 20:49] LABS: Anion Gap 6.9 mmol/L (3-11); BUN 20 mg/dL (7-18); CO2 28.1 mmol/L (21.0-32.0); CREATININE 1.3 mg/dL (0.70-1.30); Calcium 8.7 mg/dL (8.5-10.1); Chloride 106 mmol/L (98-107); Estimated GFR 53.67 (mL/min/1.73m2); Ferritin 418 ng/mL (26-388); Glucose 112 mg/dL (74-106); Potassium 4.2 mmol/L (3.5-5.1); Sodium 141 mmol/L (136-145)
[2021-07-17 20:50] LABS: Folate > 20.0 ng/mL (8.6-20.0)
== END 2021-07-17 20:16 | disposition home or self-care (01) ==
LOC: NCHCN 20:15
PROVIDERS: PCP Family Medicine; Visit Provider Family Medicine
DX: D64.9 Anemia, unspecified (principal); N28.9 Disorder of kidney and ureter, unspecified
CPT/HCPCS: 80048; 82728; 82746; 83540; 83550

== ENCOUNTER 2021-08-02 02:11 | Outpatient (RCR) | payer MEDICARE, SELFPAY ==
--- NOTE | 2021-08-02 09:45 | HOLTER_ITS ---
APPROVED REPORT Conclusion This is a 48-hour Holter monitor reportedly ordered for bradycardia Predominant rhythm was sinus with an average heart rate of 63. Minimum was 51, maximum 105 There were moderately frequent premature ventricular contractions, comprising 6% of total beats. The re were rare ventricular couplets. There was no ventricular tachycardia There were no significant supraventricular dysrhythmias, no atrial fibrillation. There was no high-grade AV block or pauses greater than 3 seconds No patient symptoms were reported
== END 2021-08-15 23:59 | disposition home or self-care (01) ==
LOC: RT 02:11
PROVIDERS: PCP Family Medicine; Visit Provider Family Medicine
DX: R55 Syncope and collapse (principal); I49.3 Ventricular premature depolarization
CPT/HCPCS: 93227; 93225; 93226

== ENCOUNTER → 2021-09-16 12:41 | Outpatient (BNVA) | payer MEDICARE, SELFPAY | PROVIDERS: PCP Family Medicine; Referring Provider Family Medicine; Visit Provider Psychiatry & Neurology Neurology | DX: E11.9 Type 2 diabetes mellitus without complications (principal); I10 Essential (primary) hypertension; R42 Dizziness and giddiness; R41.3 Other amnesia; R00.1 Bradycardia, unspecified | CPT/HCPCS: 99214 ==

== ENCOUNTER 2021-12-27 13:19 | Outpatient (REF) | payer MEDICARE, SELFPAY ==
[2021-12-27 16:01] LABS: HCT 38.7 % (40.0-50.0); MCH 33.1 pg (27.0-33.0); MCHC 33.6 % (32.0-36.0); MCV 99 fL (80-95); MPV 11.6 fL (8.0-11.0); Platelet Count 229 10^3/uL (130-400); RBC 3.93 10^6/uL (4.36-5.78); RDW 12.6 % (11.8-14.1); RDW-SD 45.6 fL; WBC 10.85 10^3/uL (4.4-10.8)
[2021-12-27 17:03] LABS: ALT 24 U/L (16-63); AST 24 U/L (15-37); Alkaline Phosphatase 56 U/L (46-116); Anion Gap 7.7 mmol/L (3-11); BUN 21 mg/dL (7-18); Bilirubin, Total 0.6 mg/dL (0.2-1.0); CO2 29.3 mmol/L (21.0-32.0); CREATININE 1.4 mg/dL (0.70-1.30); Calcium 9.3 mg/dL (8.5-10.1); Chloride 105 mmol/L (98-107); Estimated GFR 52.09 (mL/min/1.73m2); Glucose 124 mg/dL (74-106); Potassium 4.8 mmol/L (3.5-5.1); Sodium 142 mmol/L (136-145); Total Protein 7.3 g/dL (6.4-8.2)
== END 2021-12-27 13:20 | disposition home or self-care (01) ==
LOC: NCHCN 13:19
PROVIDERS: PCP Family Medicine; Visit Provider Family Medicine
DX: R63.4 Abnormal weight loss (principal); D64.9 Anemia, unspecified; F10.99 Alcohol use, unspecified with unspecified alcohol-induced disorder
CPT/HCPCS: 80053; 85027

== ENCOUNTER → 2022-01-13 10:42 | Outpatient (BNVA) | payer MEDICARE, SELFPAY | PROVIDERS: PCP Family Medicine; Referring Provider Family Medicine; Visit Provider Psychiatry & Neurology Neurology | DX: R42 Dizziness and giddiness (principal); R41.3 Other amnesia; R00.1 Bradycardia, unspecified; R45.4 Irritability and anger | CPT/HCPCS: 99214 ==

== ENCOUNTER 2022-10-28 16:17 | Outpatient (REF) | payer MEDICARE, SELFPAY ==
[2022-10-28 19:07] LABS: HCT 37.7 % (40.0-50.0); HGB 13.2 g/dL (13.5-17.5); MCH 32.7 pg (27.0-33.0); MCV 93 fL (80-95); MPV 11.4 fL (8.0-11.0); Platelet Count 223 10^3/uL (130-400); RBC 4.04 10^6/uL (4.36-5.78); RDW 12.8 % (11.8-14.1); RDW-SD 44.1 fL; WBC 9.86 10^3/uL (4.4-10.8)
[2022-10-28 19:53] LABS: BUN 21 mg/dL (7-18); CREATININE 1.3 mg/dL (0.70-1.30); Calcium 9.1 mg/dL (8.5-10.1); Chloride 104 mmol/L (98-107); Estimated GFR 56.58 (mL/min/1.73m2); Glucose 136 mg/dL (74-106); Potassium 4.1 mmol/L (3.5-5.1); Sodium 142 mmol/L (136-145)
== END 2022-10-28 16:18 | disposition home or self-care (01) ==
LOC: NCHCN 16:17
PROVIDERS: PCP Family Medicine; Visit Provider Family Medicine
DX: D64.9 Anemia, unspecified (principal); I10 Essential (primary) hypertension
CPT/HCPCS: 80048; 85027

== ENCOUNTER → 2022-11-04 02:32 | Outpatient (CLI) | payer MEDICARE, SELFPAY ==
--- NOTE | 2022-11-04 | DI.US_ITS ---
Exam(s) US RENAL EXAM: US RENAL CLINICAL HISTORY: RENAL CYST, N28.1,BILAT,F/U [facility]. TECHNIQUE: Pedroza scale, color and spectral Doppler were used. COMPARISON: CT CT CHEST PE CTA from 12/26/2020 US US BLADDER W/RENAL from 07/05/2021 FINDINGS: Renal size in cm: Right: 10.5 left: 8.4 Echogenicity: Normal Hydronephrosis: No Cyst or mass: Simple cyst upper pole right kidney measures 2.3 cm. 1 centimeter simple cyst mid left kidney laterally. 13 millimeter cyst with thin septation seen in the lower pole of the left kidney, similar in appearance to prior. Nephrolithiasis: No Bladder:Normal. Right ureteral jet visualized. Left ureteral jet not visualized. Prevoid vol:470 cc Postvoid vol:21 cc Prostate volume 24 cc. IMPRESSION: Stable appearance of small left kidney. Simple cyst upper pole right kidney. Cyst with with thin septation lower pole left kidney, Bosniak 2 . No further follow-up recommended with either cyst.. DATA REPOSITORY:
== END ==
PROVIDERS: PCP Family Medicine; Visit Provider Family Medicine
DX: N28.1 Cyst of kidney, acquired (principal)
CPT/HCPCS: 76770

== ENCOUNTER → 2022-11-18 08:31 | Outpatient (BNVA) | payer MEDICARE, SELFPAY | PROVIDERS: PCP Family Medicine; Referring Provider Family Medicine; Visit Provider Psychiatry & Neurology Neurology | DX: R41.3 Other amnesia (principal); R00.1 Bradycardia, unspecified; R42 Dizziness and giddiness; E11.9 Type 2 diabetes mellitus without complications; I10 Essential (primary) hypertension | CPT/HCPCS: 99214 ==

== ENCOUNTER → 2023-06-23 08:38 | Outpatient (BNVA) | payer MEDICARE, SELFPAY | PROVIDERS: PCP Family Medicine; Visit Provider Psychiatry & Neurology Neurology | DX: R41.3 Other amnesia (principal); R00.1 Bradycardia, unspecified; R42 Dizziness and giddiness; H91.93 Unspecified hearing loss, bilateral | CPT/HCPCS: 99214 ==

== ENCOUNTER 2023-09-22 10:05 | Outpatient (CLI) | payer MEDICARE, SELFPAY ==
[2023-09-22 12:26] LABS: HCT 39.7 % (40.0-50.0); HGB 13.4 g/dL (13.5-17.5); MCH 32.8 pg (27.0-33.0); MCHC 33.8 % (32.0-36.0); MCV 97 fL (80-95); MPV 10.6 fL (8.0-11.0); Platelet Count 245 10^3/uL (130-400); RBC 4.08 10^6/uL (4.36-5.78); RDW 12.7 % (11.8-14.1); RDW-SD 45.5 fL; WBC 11.49 10^3/uL (4.4-10.8)
[2023-09-22 13:00] LABS: COMMENT (LAB VIEW ONLY) 209.99 mg/dL; Microalb ug/mg Crea 9.4 ug/mg Cr
[2023-09-22 13:16] LABS: ALT 39 U/L (16-63); AST 23 U/L (15-37); Albumin 3.9 g/dL (3.4-5.0); Alkaline Phosphatase 64 U/L (46-116); BUN 17 mg/dL (7-18); Bilirubin, Total 0.67 mg/dL (0.2-1.0); CREATININE 1.3 mg/dL (0.70-1.30); Calcium 9.3 mg/dL (8.5-10.1); Calculated LDL 75 mg/dL (<100); Chloride 104 mmol/L (98-107); Cholesterol 143 mg/dL (<200); Estimated GFR 56.23 (mL/min/1.73m2); Glucose 121 mg/dL (74-106); HDL Cholesterol 49 mg/dL (40-60); Potassium 4.1 mmol/L (3.5-5.1); Sodium 142 mmol/L (136-145); TSH (W/Ref FT4) 1.71 uIU/mL (0.36-3.74); Triglyceride 97 mg/dL (<150); Vitamin B12 450 pg/mL (193-986)
[2023-09-22 18:52] LABS: Hemoglobin A1C 6.1 % (<5.7)
== END 2023-09-22 10:06 | disposition home or self-care (01) ==
LOC: LOS 10:05
PROVIDERS: PCP Family Medicine; Referring Provider Family Medicine; Visit Provider Family Medicine
DX: E11.9 Type 2 diabetes mellitus without complications (principal); F03.90 Unspecified dementia, unspecified severity, without behavioral disturbance, psychotic disturbance, mood disturbance, and anxiety; I10 Essential (primary) hypertension; E03.9 Hypothyroidism, unspecified; N40.0 Benign prostatic hyperplasia without lower urinary tract symptoms
CPT/HCPCS: 36415; 80053; 80061; 85027; 82043; 82570; 82607; 83036; 84443

== ENCOUNTER 2023-11-10 02:29 | Outpatient (CLI) | payer MEDICARE, SELFPAY ==
[2023-11-10 23:21] LABS: PSA, Diagnostic 1.3 ng/mL (<=6.5)
== END 2023-11-10 02:30 | disposition home or self-care (01) ==
LOC: LBO 02:29
PROVIDERS: PCP Family Medicine; Visit Provider Family Medicine
DX: N40.0 Benign prostatic hyperplasia without lower urinary tract symptoms (principal)
CPT/HCPCS: 36415; 84153

== ENCOUNTER → 2023-12-22 11:48 | Outpatient (BNVA) | payer MEDICARE, SELFPAY | PROVIDERS: PCP Family Medicine; Referring Provider Family Medicine; Visit Provider Psychiatry & Neurology Neurology | DX: R41.3 Other amnesia (principal); R00.1 Bradycardia, unspecified; R42 Dizziness and giddiness | CPT/HCPCS: 99214 ==

== ENCOUNTER → 2024-06-21 10:26 | Outpatient (BNVA) | payer MEDICARE, SELFPAY | PROVIDERS: PCP Family Medicine; Referring Provider Family Medicine; Visit Provider Psychiatry & Neurology Neurology | DX: R41.3 Other amnesia (principal); R00.1 Bradycardia, unspecified; R42 Dizziness and giddiness; H91.90 Unspecified hearing loss, unspecified ear; I10 Essential (primary) hypertension; E11.9 Type 2 diabetes mellitus without complications | CPT/HCPCS: 99214 ==

== ENCOUNTER 2024-07-06 10:19 | Outpatient (CLI) | payer MEDICARE, SELFPAY | END 2024-07-06 10:20 | disposition home or self-care (01) | LOC: DI.CM 10:19 | PROVIDERS: PCP Family Medicine; Visit Provider Physician Assistant | DX: R07.89 Other chest pain (principal); M17.11 Unilateral primary osteoarthritis, right knee | CPT/HCPCS: 93010 ==

== ENCOUNTER 2024-07-06 10:40 | Outpatient (CLI) | payer MEDICARE, SELFPAY ==
[2024-07-06 12:20] LABS: Abs Immature Grans 0.05 10^3/uL (0.0-0.06); Absolute Basophil Count 0.11 10^3/uL (0.0-0.2); Absolute Eosinophil Count 0.19 10^3/uL (0.0-0.7); Absolute Lymphocyte Count 3.99 10^3/uL (1.2-3.4); Absolute Monocyte Count 0.93 10^3/uL (0.1-0.8); Absolute Neutrophil Count 5.52 10^3/uL (1.2-6.7); Eosinophils % 1.8 %; HCT 38.5 % (40.0-50.0); Immature Grans % 0.5 %; MCH 32.2 pg (27.0-33.0); MCHC 33.8 % (32.0-36.0); MCV 95 fL (80-95); MPV 10.9 fL (8.0-11.0); Monocytes % 8.6 %; Neutrophils % 51.1 %; Platelet Count 230 10^3/uL (130-400); RBC 4.04 10^6/uL (4.36-5.78); RDW 12.8 % (11.8-14.1); RDW-SD 45.2 fL; WBC 10.79 10^3/uL (4.4-10.8)
[2024-07-06 12:42] LABS: ALT 22 U/L (16-63); AST 23 U/L (15-37); Albumin 3.8 g/dL (3.4-5.0); Alkaline Phosphatase 81 U/L (46-116); Anion Gap 7.1 mmol/L (3-11); BUN 20 mg/dL (7-18); Bilirubin, Total 0.7 mg/dL (0.2-1.0); CO2 29.9 mmol/L (21.0-32.0); CREATININE 1.7 mg/dL (0.70-1.30); Calcium 9.4 mg/dL (8.5-10.1); Chloride 106 mmol/L (98-107); Glucose 127 mg/dL (74-106); Potassium 3.8 mmol/L (3.5-5.1); Sodium 143 mmol/L (136-145); Total Protein 7.2 g/dL (6.4-8.2)
== END 2024-07-06 10:41 | disposition home or self-care (01) ==
LOC: LOS 10:40
PROVIDERS: PCP Family Medicine; Referring Provider Physician Assistant; Visit Provider Physician Assistant
DX: R42 Dizziness and giddiness (principal)
CPT/HCPCS: 36415; 80053; 85025

== ENCOUNTER 2024-07-08 00:50 | Outpatient (CLI) | payer MEDICARE, SELFPAY ==
--- NOTE | 2024-07-08 13:22 | DI.RAD_ITS ---
Exam(s) XR KNEE LT 3V AP,LAT,JYOTI EXAM: XR KNEE LT 3V AP,LAT,JYOTI CLINICAL HISTORY: effusion, left knee,[id number]. TECHNIQUE: 2D digital imaging was performed. Three views. COMPARISON: No exams were available for comparison FINDINGS: BONES: No acute fracture is present. No bony destructive lesion is seen. Small enthesophyte at germán driceps insertion. JOINTS: The joint spaces are maintained. There is mild periarticular spurring throughout. The knee is normally aligned. A small joint effusion is seen. SOFT TISSUE: Vascular calcifications. IMPRESSION: Mild degenerative changes. Small joint effusion. DATA REPOSITORY: RADIATION DOSE DELIVERED:
== END 2024-07-08 01:10 ==
LOC: DI 00:51
PROVIDERS: PCP Family Medicine; Visit Provider Physician Assistant
DX: M25.462 Effusion, left knee (principal)
CPT/HCPCS: 73562

== ENCOUNTER 2024-09-22 09:15 | Outpatient (CLI) | payer MEDICARE, SELFPAY ==
[2024-09-22 12:50] LABS: Hemoglobin A1C 6.3 % (<5.7)
[2024-09-22 12:55] LABS: ALT 21 U/L (16-63); AST 14 U/L (15-37); Albumin 4.0 g/dL (3.4-5.0); Alkaline Phosphatase 73 U/L (46-116); Anion Gap 7.7 mmol/L (3-11); BUN 22 mg/dL (7-18); Bilirubin, Total 0.7 mg/dL (0.2-1.0); CO2 30.3 mmol/L (21.0-32.0); Calcium 9.0 mg/dL (8.5-10.1); Chloride 103 mmol/L (98-107); Estimated GFR 47.06 (mL/min/1.73m2); Glucose 125 mg/dL (74-106); Potassium 3.9 mmol/L (3.5-5.1); Sodium 141 mmol/L (136-145); Total Protein 7.2 g/dL (6.4-8.2)
== END 2024-09-22 09:16 | disposition home or self-care (01) ==
LOC: LOS 09:15
PROVIDERS: PCP Family Medicine; Visit Provider Family Medicine
DX: E11.9 Type 2 diabetes mellitus without complications (principal); I10 Essential (primary) hypertension
CPT/HCPCS: 36415; 80053; 83036

== ENCOUNTER 2024-12-11 15:23 | Emergency (ER) | payer MEDICARE, SELFPAY ==
[2024-12-11] MEDS: EPINEPHrine 1 MG/10 ML SYR IVP ×2 (15:28→15:35)
[2024-12-11 15:33] VITALS: PULSE 0
[2024-12-11] MEDS: Atropine 1 MG/10 ML SYRINGE 0.5 MG IVP (15:35)
[2024-12-11] MEDS: Normal Saline 1,000 ML 1000 ML IV (15:37)
[2024-12-11 15:40] VITALS: PULSE 0
[2024-12-11] MEDS: Norepinephrine in D5W 8 MG/250 ML BAG 37.5 MG IV (15:40)
[2024-12-11] MEDS: Tenecteplase 50 MG KIT 45 MG IVP (15:42)
--- NOTE | 2024-12-11 16:02 | W.ED.PROC ---
Date of service: 12/11/24 Time of Service: 16:02 Procedures Central Line Placement Right Femoral: Patient Placed on Monitor/Pulse Ox: Yes MD Prep: mask, gown and gloves Central Line Prep: Chlorhexidine scrub and sterile drapes applied Ultrasound Used for Placement: Yes Central Line Lumen Inserted: triple Post Procedure: good blood return, all ports aspirated, flushed, capped and sutured in place with 3-0 nylon Complications: none Additional Comments: Line placed during active cardiac resuscitation with ongoing cpr Narrative Narrative Narrative: I was asked place central line by treating provider Dr. Raya. Right femoral line was placed under ultrasound guidance during active resuscitation.
--- NOTE | 2024-12-11 16:06 | RESPIRATORY ---
Respiratory Therapy present for cardiac arrest. ETc02, suction, and Ambu set up at bedside.
--- NOTE | 2024-12-11 16:14 | W.ED.GENAD ---
Discharge Plan Disposition Patient Disposition: Discharge Details Clinical Impression: Cardiac arrest, New onset left bundle branch block (LBBB) Primary Care Provider: Priya Lund ED Provider: Yanni Raya General Mode of arrival: EMS. Date/Time Provider Initiated Documentation: 12/11/24 15:29. Limitations to Documentation: altered mental status. Information obtained by: EMS. HPI Narrative: This is a 79-year-old male patient with a past medical history significant for hypertension, hyperlipidemia, diabetes, dementia, presenting with EMS in cardiac arrest. EMS was dispatched for arm pain, when they arrived on scene the patient had collapsed and fire and EMS noted him to be pulseless in a bradycardic PEA rhythm. The patient received 5 rounds of epi and atropine prehospital he. He had 1 instance of a ventricular fibrillation for which he received 300 of amiodarone as well as 1 shock, and this resulted in asystole. CPR was continued with excellent end-tidal throughout, the patient was intubated by EMS and brought to our facility for further evaluation. On arrival, the patient is unresponsive, intubated, not on any postintubation sedation without any purposeful neuro response. EMS EKG shows a left bundle branch block, most recent prior available to us from 2020, which did not reveal a left bundle branch block at that time. Prehospital blood glucose in the 200s, no reported trauma per family, no reported ingestions or toxins on scene. Related Data Home Medications Medication Instructions Recorded Confirmed blood sugar diagnostic (OneTouch #90 strips 06/25/12 09/22/24 Ultra Test strips) lancets 33 gauge (OneTouch Delica #100 ea 06/25/12 09/22/24 Lancets) multivitamin 1 tab PO DAILY 06/25/12 09/22/24 citalopram 20 mg tablet 20 mg PO DAILY #90 tabs 06/21/24 09/22/24 memantine 10 mg tablet 10 mg PO BID #180 tabs 06/21/24 09/22/24 amlodipine 10 mg tablet 10 mg PO QAM #90 tabs 07/14/24 09/22/24 atorvastatin 40 mg tablet (Lipitor) 40 mg PO QAM #90 tab-caps 07/14/24 09/22/24 bimatoprost 0.01 % eye drops 1 drp ophthalmic (eye) QPM 07/14/24 09/22/24 (Lumigan) losartan 100 mg tablet 100 mg PO QAM #90 tabs 07/14/24 09/22/24 metoprolol succinate 50 mg 50 mg PO DAILY #90 tabs 07/14/24 09/22/24 tablet,extended release 24 hr cyanocobalamin (vitamin B-12) 1,000 mcg PO DAILY 09/22/24 09/22/24 1,000 mcg tablet Previous Rx's Medication Instructions Recorded citalopram 20 mg tablet 20 mg PO DAILY #90 tabs 06/21/24 memantine 10 mg tablet 10 mg PO BID #180 tabs 06/21/24 amlodipine 10 mg tablet 10 mg PO QAM #90 tabs 07/14/24 atorvastatin 40 mg tablet (Lipitor) 40 mg PO QAM #90 tab-caps 07/14/24 losartan 100 mg tablet 100 mg PO QAM #90 tabs 07/14/24 metoprolol succinate 50 mg 50 mg PO DAILY #90 tabs 07/14/24 tablet,extended release 24 hr Allergies Allergy/AdvReac Type Severity Reaction Status Date / Time No Known Allergies Allergy Verified 09/22/24 08:26 General Stated Complaint: CodeBlue [place]STER: 1 Exam Narrative Exam Narrative: Gen: Unresponsive, appears acutely ill HEENT: Left pupil fixed, 5 mm, right pupil fixed, with an eccentric pupil consistent with a likely prior ophthalmologic procedure. Neck: Supple Lungs: Apneic, Intubated, lung sounds present and equal bilaterally CV: Pulseless, CPR in progress, femoral pulses present with CPR Abdomen: Non-distended, soft MSK: No apparent trauma or deformity to the 4 extremities, no significant peripheral edema Skin: Cool, manrique skin Neuro: GCS 3 Procedure Central Line Placement Date of Procedure: 12/11/24 Time of Procedure: 15:55 Provider that performed the procedure: Zachery Hatfield Indication: Central venous access and Emergent access Patient Consented: Emergent Case Sterility: Sterile Insertion Procedure: Vessel accessed with needle, Guidewire met resistance, Dermatotomy (skin kurtis) made with scalpel, Dilator placed without resistance, Introducer/Catheter placed without resistance, Guidewire removed and Claves placed, blood withdrawn, ports flushed and clamped Ultrasound: Used/Image Saved Number of Attempts(see previous attempts in note section): 1 Post Procedure: good blood return, all ports aspirated, flushed, capped and sutured in place with 2-0 silk Dressing: Tegaderm applied Reason for Blood draw by Provider: RN/lab unable Procedure Tolerated: No Complications Procedure Outcome: Successful Procedure Description/Note: The decision was made to proceed with central venous access given ongoing cardiac arrest without the ability to obtain peripheral access. The right femoral was assessed with ultrasound and found to be amenable to catheterization. Under sterile procedure, the site was thoroughly cleansed, the patient was draped, and under ultrasound guidance the introducer needle was directly visualized under ultrasound to be advancing into the vein, with loss of resistance and dark red blood easily aspirated into the chamber of the syringe. The wire was advanced to 25 cm with ease, skin kurtis performed and the dilator was passed without resistance. The triple-lumen catheter, with all ports previously flushed, was advanced easily over the wire until the hub reached to the skin. All 3 ports withdrew dark red blood and flushed easily. All 3 lines were capped and clamped, and the catheter was sutured in place and secured with a Tegaderm. The patient tolerated this procedure well, with no immediate adverse effects. Medical Decision Making This is a 79-year-old male patient brought in by EMS as a cardiac arrest. My differential includes but is not limited to ACS, especially given the new left bundle branch block and history of arm pain. Certainly considered thrombosis including massive pulmonary embolism, aortic pathology including aneurysm and dissection. Considered metabolic and electrolyte derangement, anemia, kidney injury, liver pathology. History is less concerning for hypoglycemia, trauma. The patient's initial rhythm check shows asystole, CPR was continued using a Lars device. The patient has an IO in place, and intravenous access was attempted numerous times unsuccessfully. The patient received a dose of epinephrine, tube placement verified with end-tidal CO2 and lung sounds, and the patient's end-tidal CO2 is notably in the 30s and 40s. Multiple rounds of CPR were conducted with pulse checks roughly every 2 minutes, with asystole appreciated. [id number] ultrasound was utilized during pulse checks to evaluate for cardiac activity. On 1 of those checks, I did appreciate some cardiac motion, associated with pulseless electrical activity on the monitor. The patient was given an additional dose of epinephrine as well as atropine, a fluid bolus was provided through the IO, and the patient was initiated on a norepinephrine drip. Given the concern for ACS as a cause of the cardiac arrest, the decision was made to proceed with TNK, a weight-based dose was administered. A central line was placed as noted above given the lack of vascular access other than the IO. Greater than 20 minutes was allowed to pass after administration of TNK, pulse checks continue to reveal pulseless electrical activity. At this time, I am concerned for the futility of resuscitation given the prolonged downtime time, the lack of return of circulation despite appropriate vasopressors, lytics, and high-quality ACLS resuscitation. The decision was made to terminate efforts, time of was called at 1601. The patient's family was updated and were able to be present at bedside after his time of . certificate certified and completed, organ bank contacted but the patient's comorbidities precludes him from postmortem donation. The patient does not require a electromedical equipment repairer case, and was taken from this ED to the [facility]. Yanni Raya MD Critical Care Time Critical Care Time Critical Care Time: Yes Total Critical Care Time: 60 Attestation: Upon my evaluation, this patient had a high probability of imminent or life-threatening deterioration due to cardiac arrest, which required my direct attention, intervention, and personal management. I have personally provided 60 minutes of critical care time exclusive of time spent on separately billable procedures. Time includes review of laboratory data, radiology results, discussion with consultants, and monitoring for potential decompensation. Interventions were performed as documented above. 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) Alcohol abuse (Chronic) Glaucoma (Chronic) Mild dementia (Acute) Increased body mass index (Acute) Dementia (Chronic) Hyperlipidemia (Acute) Hearing loss (Acute) Bradycardia (Acute) Memory loss (Acute) Atherosclerotic cerebrovascular disease (Acute) Lightheadedness (Acute) Unsteady gait (Acute) Medical History Anterior epistaxis Polyp of colon (01/15/06) Cataract Macrocytosis Surgical History S/P cataract extraction Status post hernia repair R x2; 1964 1968 Colonoscopy - MAC 10/23 Colonoscopy - IV Sedation (06/09/16) Family History Mother Essential hypertension Heart disease Stroke Father Diabetes Personal history of malignant neoplasm PROSTATE Heart disease Hyperlipidemia Stroke Alcohol use disorder Hypertension Maternal Grandmother Essential hypertension Heart disease Maternal Grandfather Personal history of malignant neoplasm Paternal Grandfather Personal history of malignant neoplasm PROSTATE/SKIN Paternal Grandmother Stroke Daughter Asthma Social History (Updated 09/22/24 @ 15:13 by Tammy Tipton) Smoking/Tobacco Use Status: Former Tobacco Use tobacco type: cigarettes and smokeless tobacco Quit Date: 02/16/19 Tobacco: How many years used: 20 Smokeless tobacco user: chewing tobacco Second Hand Exposure: Yes Smoking risk assessment performed?: Yes Alcohol Intake: never Drug use: Never Substance use type: does not use Adopted: No Caregiver/Support person: No Foster care: No Household members: spouse Housing: house Number of Children: 2 number of grandchildren: 6 Communication Needs: None Education Level: high school Do you need help understanding health information?: Often current occupation: Retired Sexually active: No Do you think of yourself as: straight/heterosexual Current gender identity: male What is your relationship status?: How often do you talk on the phone with friends or family?: once per week How often do you get together with friends or relatives?: once per week How often do you attend protestant or hindu services?: 1-3 times per year Do you belong to any clubs or organized social groups?: no Panel score (0-1 are the most socially isolated patients): 1 NHANES result reviewed/action taken: Yes Duration: < 15 minutes/day Frequency: 1-2 times per week Natalya/Congregational: Non mu-ism Special natalya needs: No Agree to transfusion: Yes Seatbelt use: always Drive intox or ride w/intox grab driver: No Working smoke detector in home: Yes Carbon monox detector in home: Yes Firearms in home: Yes Firearms unloaded and locked: Yes Do you feel safe at home: Yes Do you feel safe in your relationship?: Yes Victim of physical abuse: No Victim of emotional abuse: No Victim of sexual abuse: No Would you like helpful sources: No POCUS Exam (ED) Limited Cardiac Exam DATE OF EXAM: 12/11/24 TIME OF EXAM: 15:15 PROVIDER THAT PERFORMED THE STUDY: Yanni Raya REASON FOR EXAM: Cardiac arrest VISUALIZED STRUCTURES: Left atrium, Left ventricle, Right ventricle, Aortic valve, Mitral valve and Interventricular septum VIEW OBTAINED: Parasternal long-axis PERTINENT FINDINGS/IMPRESSION: Other Pulse checks, occasional organized cardiac activity that is not producing a pulse consistent with PEA. No large pericardial effusions appreciated, 1 view for pulse checks during active cardiac arrest only Exam complete
== END 2024-12-11 18:14 | disposition expired ==
PROVIDERS: Emergency Provider Emergency Medicine; PCP Family Medicine
DX: I46.9 Cardiac arrest, cause unspecified (principal); I44.7 Left bundle-branch block, unspecified; E11.69 Type 2 diabetes mellitus with other specified complication; I10 Essential (primary) hypertension
CPT/HCPCS: 36415; 36416; 36556; 76937; 82962; 92950; 93308; 96374; 96375; 99291; J0461; J3101